=== PATIENT | male | born 1935 | race Caucasian/White ===

== ENCOUNTER → 2017-07-17 | Outpatient (CLI) | payer MEDICARE, BC ==
[2017-07-17 11:40] LABS: Anisocytosis Slight; Aty Lym Flag Moderate; HCT 38.8 % (39.0-53.0); HDW 3.11; HGB 11.9 gm/dL (13.0-17.5); Hypochromasia Marked; MCH 30.7 pg (25.0-35.0); MCHC 30.5 g/dL (31.0-37.0); MCV 100.4 fL (80.0-100.0); Macrocytosis Slight; Mean Platelet Volume 10.5; RBC 3.87 m/uL (4.30-5.90); RDW 16.3 % (11.5-15.5); WBC 4.7 k/uL (3.8-10.6); WBC (Perox) 4.76
[2017-07-17 11:53] LABS: ALT 32 U/L (21-72); AST 25 U/L (17-59); Alkaline Phosphatase 62 U/L (38-126); Anion Gap 9 mmol/L; Blood Urea Nitrogen 20 mg/dL (9-20); Calcium 8.7 mg/dL (8.4-10.2); Carbon Dioxide 26 mmol/L (22-30); Chloride 108 mmol/L (98-107); Cholesterol 126 mg/dL (<200); Glucose 102 mg/dL (74-99); HDL Cholesterol 38 mg/dL (40-60); Non-African American GFR(MDRD) >60 (>60 ml/min/1.73 sqM); Potassium 5.2 mmol/L (3.5-5.1); Sodium 143 mmol/L (137-145); Total Bilirubin 0.8 mg/dL (0.2-1.3); Total Protein 6.4 g/dL (6.3-8.2)
[2017-07-17 12:03] LABS: Add Differential Manual Differential
[2017-07-17 12:09] LABS: Band Neutrophils % 1 %; Manual Review Performed; Myelocytes % 1 %; Nucleated Red Blood Cells 0 /100 WBC (0-0); Total Cells Counted 200
== END | disposition home or self-care (01) ==
LOC: LABWHC1 11:03
PROVIDERS: ATTEND Internal Medicine
DX: E78.5 Hyperlipidemia, unspecified (principal); I10 Essential (primary) hypertension; I25.10 Atherosclerotic heart disease of native coronary artery without angina pectoris; Z85.46 Personal history of malignant neoplasm of prostate
CPT/HCPCS: 36415; 80053; 80061; 84153; 84439; 84443; 85025

== ENCOUNTER → 2018-03-05 | Outpatient (CLI) | payer MEDICARE, BC ==
--- NOTE | 2018-03-05 11:29 | FL ---
ESOPHOGRAM. HISTORY: Dysphagia Esophagram was performed per the air contrast technique. The patient swallowed barium and effervesce nt crystals without difficulty or delay. Esophageal peristalsis and motility appear to be within normal limits. There is no evidence for filling defect, mass or diverticulum. Small sliding-type hiatal hernia noted. Subsequently single contrast cervical esophagram was performed which fails demonstrate evidence for a spiration penetration or mass. IMPRESSION: Small sliding-type hiatal hernia noted.
== END | disposition home or self-care (01) ==
LOC: RADFLMAIN 09:12
PROVIDERS: ATTEND Otolaryngology
DX: K44.9 Diaphragmatic hernia without obstruction or gangrene (principal)
CPT/HCPCS: 74220

== ENCOUNTER → 2018-06-23 | Outpatient (CLI) | payer MEDICARE, BC ==
[2018-06-23 11:53] LABS: Albumin 4.1 g/dL (3.5-5.0); Calcium 8.8 mg/dL (8.4-10.2); Total Bilirubin 0.7 mg/dL (0.2-1.3); Total Protein 6.4 g/dL (6.3-8.2)
[2018-06-23 11:58] LABS: INR 1.2 (<1.2); Prothrombin Time 11.2 sec (9.0-12.0)
== END | disposition home or self-care (01) ==
LOC: LABWHC1 10:11
PROVIDERS: ATTEND Internal Medicine Interventional Cardiology
DX: E78.2 Mixed hyperlipidemia (principal); I48.1 Persistent atrial fibrillation
CPT/HCPCS: 36415; 80053; 80061; 85610

== ENCOUNTER 2018-12-27 16:18 | Inpatient (IN) | payer MEDICARE, BC ==
[2018-12-27] MEDS ORDERED: IPRATROPIUM-ALBUTEROL 3 ML NEB INHALATION STA (16:45)
--- NOTE | 2018-12-27 16:46 | ED ---
SOB HPI - General Chief Complaint: Shortness of Breath Stated Complaint: Sob Time Seen by Provider: 12/27/18 16:37 Source: patient, RN notes reviewed, old records reviewed Mode of arrival: ambulatory Limitations: no limitations - History of Present Illness Initial Comments: This is a 83-year-old male the ER for evaluation shortness of breath. Patient sent in from family doctor for further evaluation management. Patient was hypoxic in the office with shortness of breath. Patient continues to plan of shortness of breath no chest pain. No fevers no cough or congestion MD Complaint: shortness of breath, cough -: days(s) Radiation: other Severity: moderate Severity scale (1-10): 6 Quality: aching Consistency: constant Improves With: bronchodilators Worsens With: nothing Known History Of: congestive heart failure Context: recent URI Associated Symptoms: cough Treatments Prior to Arrival: none - Related Data Home Medications Medication Instructions Recorded Confirmed Albuterol Inhaler [Ventolin Hfa 2 puff INHALATION RT-Q6H 12/27/18 12/27/18 Inhaler] Apixaban [Eliquis] 2.5 mg PO BID 12/27/18 12/27/18 Furosemide [Lasix] 20 mg PO BID 12/27/18 12/27/18 Metoprolol Succinate (ER) [Toprol 50 mg PO DAILY 12/27/18 12/27/18 XL] Multivitamins, Thera [Multivitamin 1 tab PO DAILY 12/27/18 12/27/18 (formulary)] Omeprazole [PriLOSEC] 20 mg PO DAILY 12/27/18 12/27/18 Simvastatin [Zocor] 40 mg PO DAILY 12/27/18 12/27/18 Spironolactone [Aldactone] 25 mg PO DAILY 12/27/18 12/27/18 amLODIPine BESYLATE/BENAZEPRIL 1 cap PO DAILY 12/27/18 12/27/18 [amLODIPine BESYLATE/BENAZEPRIL 5-20 MG] Allergies Allergy/AdvReac Type Severity Reaction Status Date / Time No Known Allergies Allergy Verified 12/27/18 17:41 Review of Systems ROS Statement: Those systems with pertinent positive or pertinent negative responses have been documented in the HPI. ROS Other: All systems not noted in ROS Statement are negative. Past Medical History Past Medical History: Heart Failure, Hyperlipidemia, Hypertension Additional Past Medical History / Comment(s): prostate CA and radiation History of Any Multi-Drug Resistant Organisms: None Reported Past Surgical History: Coronary Bypass/CABG Past Psychological History: No Psychological Hx Reported Smoking Status: Former smoker Past Alcohol Use History: None Reported Past Drug Use History: None Reported - Past Family History Father Family Medical History: Unable to Obtain Mother Family Medical History: Unable to Obtain General Exam Limitations: no limitations General appearance: alert, anxious, in distress Head exam: Present: atraumatic, normocephalic, normal inspection Eye exam: Present: normal appearance, PERRL, EOMI. Absent: scleral icterus, conjunctival injection, periorbital swelling ENT exam: Present: normal exam, mucous membranes moist Neck exam: Present: normal inspection. Absent: tenderness, meningismus, lymphadenopathy Respiratory exam: Present: respiratory distress, wheezes, rales, decreased breath sounds, prolonged expiratory. Absent: rhonchi, stridor Cardiovascular Exam: Present: regular rate, normal rhythm, normal heart sounds. Absent: systolic murmur, diastolic murmur, rubs, gallop, clicks GI/Abdominal exam: Present: soft, normal bowel sounds. Absent: distended, tenderness, guarding, rebound, rigid Extremities exam: Present: normal inspection, full ROM, normal capillary refill. Absent: tenderness, pedal edema, joint swelling, calf tenderness Back exam: Present: normal inspection Neurological exam: Present: alert, oriented X3, CN II-XII intact Psychiatric exam: Present: normal affect, normal mood Skin exam: Present: warm, dry, intact, normal color. Absent: rash Course Vital Signs 12/27/18 12/27/18 12/27/18 16:20 16:54 17:08 Temperature 97.6 F Pulse Rate 100 86 92 Pulse Rate [ Engine Wiper ] Respiratory 20 Rate Blood Pressure 102/55 Blood Pressure [Right Arm] O2 Sat by Pulse 78 L Oximetry 12/27/18 12/27/18 12/27/18 17:32 18:00 18:44 Temperature Pulse Rate 86 81 86 Pulse Rate [ Engine Wiper ] Respiratory 20 20 20 Rate Blood Pressure 142/82 142/82 148/74 Blood Pressure [Right Arm] O2 Sat by Pulse 95 96 94 L Oximetry 12/27/18 12/27/18 12/27/18 18:45 19:00 19:15 Temperature Pulse Rate 84 84 79 Pulse Rate [ Engine Wiper ] Respiratory 13 19 19 Rate Blood Pressure 148/74 148/74 142/89 Blood Pressure [Right Arm] O2 Sat by Pulse 92 L 94 L 94 L Oximetry 12/27/18 12/27/18 12/27/18 19:30 19:45 20:00 Temperature Pulse Rate 83 84 80 Pulse Rate [ Engine Wiper ] Respiratory 19 21 21 Rate Blood Pressure 142/89 142/89 142/89 Blood Pressure [Right Arm] O2 Sat by Pulse 94 L 98 95 Oximetry 12/27/18 12/27/18 12/27/18 20:15 20:30 20:45 Temperature Pulse Rate 80 86 86 Pulse Rate [ Engine Wiper ] Respiratory 19 21 22 Rate Blood Pressure Blood Pressure [Right Arm] O2 Sat by Pulse 97 98 95 Oximetry 12/27/18 12/27/18 12/27/18 21:00 21:15 21:30 Temperature Pulse Rate 86 86 Pulse Rate [ Engine Wiper ] Respiratory 20 20 Rate Blood Pressure 153/85 153/85 Blood Pressure [Right Arm] O2 Sat by Pulse 95 95 Oximetry 12/27/18 12/27/18 12/27/18 21:43 21:45 22:00 Temperature Pulse Rate 82 86 87 Pulse Rate [ Engine Wiper ] Respiratory 16 14 20 Rate Blood Pressure 153/85 Blood Pressure [Right Arm] O2 Sat by Pulse 94 L 95 83 L Oximetry 12/27/18 12/27/18 12/27/18 22:15 22:34 22:45 Temperature Pulse Rate 84 Pulse Rate [ Engine Wiper ] Respiratory 16 Rate Blood Pressure Blood Pressure [Right Arm] O2 Sat by Pulse 91 L 84 L 84 L Oximetry 12/27/18 12/27/18 12/27/18 23:00 23:15 23:30 Temperature Pulse Rate Pulse Rate [ Engine Wiper ] Respiratory Rate Blood Pressure Blood Pressure [Right Arm] O2 Sat by Pulse 72 L 76 L 87 L Oximetry 12/27/18 12/28/18 12/28/18 23:45 01:43 01:52 Temperature Pulse Rate 82 82 91 Pulse Rate [ Engine Wiper ] Respiratory 18 Rate Blood Pressure 121/77 Blood Pressure [Right Arm] O2 Sat by Pulse Oximetry 12/28/18 12/28/18 12/28/18 04:00 07:33 07:45 Temperature Pulse Rate 91 115 H Pulse Rate [ 68 Engine Wiper ] Respiratory 18 Rate Blood Pressure Blood Pressure 136/81 [Right Arm] O2 Sat by Pulse 98 Oximetry 12/28/18 12/28/18 12/28/18 08:10 08:11 11:16 Temperature 97.7 F Pulse Rate 111 H Pulse Rate [ 99 99 Engine Wiper ] Respiratory 20 20 Rate Blood Pressure Blood Pressure 136/81 [Right Arm] O2 Sat by Pulse 95 Oximetry 12/28/18 12/28/18 12/28/18 11:29 12:00 12:09 Temperature 97.0 F L Pulse Rate 103 H Pulse Rate [ 90 90 Engine Wiper ] Respiratory 20 20 Rate Blood Pressure Blood Pressure 135/92 [Right Arm] O2 Sat by Pulse 93 L Oximetry 12/28/18 12/28/18 14:58 15:30 Temperature 97.2 F L Pulse Rate Pulse Rate [ 88 90 Engine Wiper ] Respiratory 20 20 Rate Blood Pressure Blood Pressure 119/92 [Right Arm] O2 Sat by Pulse 96 Oximetry Medical Decision Making - Medical Decision Making [address] Beyer's office to be admitted for CHF CHF and hypoxia secondary to COPD. We'll place on breathing treatments and cardiopulmonary resuscitation - Lab Data Result diagrams: 12/27/18 17:15 12/27/18 17:15 Lab Results 12/27/18 12/27/18 12/27/18 Range/Units 17:15 17:15 17:15 WBC 7.2 (3.8-10.6) k/uL RBC 3.15 L (4.30-5.90) m/uL Hgb 8.4 L (13.0-17.5) gm/dL Hct 28.1 L (39.0-53.0) % MCV 89.0 (80.0-100.0) fL MCH 26.6 (25.0-35.0) pg MCHC 29.9 L (31.0-37.0) g/dL RDW 18.8 H (11.5-15.5) % Plt Count 93 L (150-450) k/uL Neutrophils % (Manual) 38 % Lymphocytes % (Manual) 41 % Monocytes % (Manual) 21 % Neutrophils # (Manual) 2.74 (1.3-7.7) k/uL Lymphocytes # (Manual) 2.95 (1.0-4.8) k/uL Monocytes # (Manual) 1.51 H (0-1.0) k/uL Nucleated RBCs 0 (0-0) /100 WBC Manual Slide Review Performed Hypochromasia Marked Poikilocytosis Slight Poikilocytosis (manual Present Anisocytosis Slight Anisocytosis (manual) Present PT (9.0-12.0) sec INR (<1.2) APTT (22.0-30.0) sec D-Dimer (<0.60) mg/L FEU Sodium 139 (137-145) mmol/L Potassium 4.8 (3.5-5.1) mmol/L Chloride 104 (98-107) mmol/L Carbon Dioxide 26 (22-30) mmol/L Anion Gap 9 mmol/L BUN 35 H (9-20) mg/dL Creatinine 1.25 (0.66-1.25) mg/dL Est GFR (CKD-EPI)AfAm 62 (>60 ml/min/1.73 sqM) Est GFR (CKD-EPI)NonAf 53 (>60 ml/min/1.73 sqM) Glucose 84 (74-99) mg/dL Calcium 8.7 (8.4-10.2) mg/dL Magnesium 1.9 (1.6-2.3) mg/dL Total Bilirubin 2.0 H (0.2-1.3) mg/dL AST 40 (17-59) U/L ALT 30 (21-72) U/L Alkaline Phosphatase 51 (38-126) U/L Total Creatine Kinase 73 (55-170) U/L CK-MB (CK-2) 2.7 H (0.0-2.4) ng/mL CK-MB (CK-2) Rel Index 3.7 Troponin I 0.080 H* (0.000-0.034) ng/mL NT-Pro-B Natriuret Pep pg/mL Total Protein 6.1 L (6.3-8.2) g/dL Albumin 3.6 (3.5-5.0) g/dL 12/27/18 12/27/18 12/27/18 Range/Units 17:15 17:15 23:32 WBC (3.8-10.6) k/uL RBC (4.30-5.90) m/uL Hgb (13.0-17.5) gm/dL Hct (39.0-53.0) % MCV (80.0-100.0) fL MCH (25.0-35.0) pg MCHC (31.0-37.0) g/dL RDW (11.5-15.5) % Plt Count (150-450) k/uL Neutrophils % (Manual) % Lymphocytes % (Manual) % Monocytes % (Manual) % Neutrophils # (Manual) (1.3-7.7) k/uL Lymphocytes # (Manual) (1.0-4.8) k/uL Monocytes # (Manual) (0-1.0) k/uL Nucleated RBCs (0-0) /100 WBC Manual Slide Review Hypochromasia Poikilocytosis Poikilocytosis (manual Anisocytosis Anisocytosis (manual) PT 12.4 H (9.0-12.0) sec INR 1.2 H (<1.2) APTT 27.7 (22.0-30.0) sec D-Dimer 0.33 (<0.60) mg/L FEU Sodium (137-145) mmol/L Potassium (3.5-5.1) mmol/L Chloride (98-107) mmol/L Carbon Dioxide (22-30) mmol/L Anion Gap mmol/L BUN (9-20) mg/dL Creatinine (0.66-1.25) mg/dL Est GFR (CKD-EPI)AfAm (>60 ml/min/1.73 sqM) Est GFR (CKD-EPI)NonAf (>60 ml/min/1.73 sqM) Glucose (74-99) mg/dL Calcium (8.4-10.2) mg/dL Magnesium (1.6-2.3) mg/dL Total Bilirubin (0.2-1.3) mg/dL AST (17-59) U/L ALT (21-72) U/L Alkaline Phosphatase (38-126) U/L Total Creatine Kinase (55-170) U/L CK-MB (CK-2) (0.0-2.4) ng/mL CK-MB (CK-2) Rel Index Troponin I 0.092 H* (0.000-0.034) ng/mL NT-Pro-B Natriuret Pep 09938 pg/mL Total Protein (6.3-8.2) g/dL Albumin (3.5-5.0) g/dL 12/28/18 Range/Units 05:22 WBC (3.8-10.6) k/uL RBC (4.30-5.90) m/uL Hgb (13.0-17.5) gm/dL Hct (39.0-53.0) % MCV (80.0-100.0) fL MCH (25.0-35.0) pg MCHC (31.0-37.0) g/dL RDW (11.5-15.5) % Plt Count (150-450) k/uL Neutrophils % (Manual) % Lymphocytes % (Manual) % Monocytes % (Manual) % Neutrophils # (Manual) (1.3-7.7) k/uL Lymphocytes # (Manual) (1.0-4.8) k/uL Monocytes # (Manual) (0-1.0) k/uL Nucleated RBCs (0-0) /100 WBC Manual Slide Review Hypochromasia Poikilocytosis Poikilocytosis (manual Anisocytosis Anisocytosis (manual) PT (9.0-12.0) sec INR (<1.2) APTT (22.0-30.0) sec D-Dimer (<0.60) mg/L FEU Sodium (137-145) mmol/L Potassium (3.5-5.1) mmol/L Chloride (98-107) mmol/L Carbon Dioxide (22-30) mmol/L Anion Gap mmol/L BUN (9-20) mg/dL Creatinine (0.66-1.25) mg/dL Est GFR (CKD-EPI)AfAm (>60 ml/min/1.73 sqM) Est GFR (CKD-EPI)NonAf (>60 ml/min/1.73 sqM) Glucose (74-99) mg/dL Calcium (8.4-10.2) mg/dL Magnesium (1.6-2.3) mg/dL Total Bilirubin (0.2-1.3) mg/dL AST (17-59) U/L ALT (21-72) U/L Alkaline Phosphatase (38-126) U/L Total Creatine Kinase (55-170) U/L CK-MB (CK-2) (0.0-2.4) ng/mL CK-MB (CK-2) Rel Index Troponin I 0.090 H* (0.000-0.034) ng/mL NT-Pro-B Natriuret Pep pg/mL Total Protein (6.3-8.2) g/dL Albumin (3.5-5.0) g/dL - EKG Data -: EKG Interpreted by Me (EKG shows A. fib rate of 83, QRS 106, QTc 470) - Radiology Data Radiology results: report reviewed (Chest x-rays positive CHF ), image reviewed Critical Care Time Critical Care Time: Yes Total Critical Care Time: 31 Disposition Clinical Impression: Acute exacerbation of chronic obstructive airways disease, Congestive heart failure, Acute pulmonary edema, Hypoxia Disposition: ADMITTED IP TO THIS HOSP Condition: Fair Is patient prescribed a controlled substance at d/c from ED?: No
[2018-12-27 17:36] LABS: Albumin 3.6 g/dL (3.5-5.0); Calcium 8.7 mg/dL (8.4-10.2); Magnesium 1.9 mg/dL (1.6-2.3); Potassium 4.8 mmol/L (3.5-5.1); Total Protein 6.1 g/dL (6.3-8.2)
[2018-12-27 17:40] LABS: Anisocytosis Slight; HCT 28.1 % (39.0-53.0); HGB 8.4 gm/dL (13.0-17.5); Hypochromasia Marked; MCH 26.6 pg (25.0-35.0); MCHC 29.9 g/dL (31.0-37.0); Mean Platelet Volume 10.3; Poikilocytosis Slight; RBC 3.15 m/uL (4.30-5.90); RDW 18.8 % (11.5-15.5); WBC 7.2 k/uL (3.8-10.6)
[2018-12-27 17:58] LABS: Creatine Kinase MB 2.7 ng/mL (0.0-2.4)
[2018-12-27 18:01] LABS: D-Dimer 0.33 mg/L FEU (<0.60); INR 1.2 (<1.2); Partial Thromboplastin Time 27.7 sec (22.0-30.0); Prothrombin Time 12.4 sec (9.0-12.0)
[2018-12-27 18:10] LABS: Troponin I 0.08 ng/mL (0.000-0.034)
[2018-12-27 18:17] LABS: Lymphocytes # (M) 2.95 k/uL (1.0-4.8); Monocytes # (M) 1.51 k/uL (0-1.0); Neutrophils # (M) 2.74 k/uL (1.3-7.7); Neutrophils % (M) 38 %; Nucleated Red Blood Cells 0 /100 WBC (0-0); Platelet Count 93 k/uL (150-450); Total Cells Counted 100
[2018-12-27 18:18] LABS: Anisocytosis (M) Present; Poikilocytosis (M) Present
[2018-12-27] MEDS ORDERED: IPRATROPIUM-ALBUTEROL 3 ML NEB INHALATION PRN (19:16)
--- NOTE | 2018-12-27 19:21 | XR ---
EXAMINATION TYPE: XR chest 1V portable DATE OF EXAM: 12/27/2018 COMPARISON: Chest x-ray October 10, 2018 HISTORY: Shortness of breath TECHNIQUE: Single AP portable frontal upright view of the chest is obtained. FINDINGS: Overlying sternal wires and mediastinal clips are redemonstrated. There is chronic parenchy mal change without suspicious focal air space opacity, pleural effusion, or pneumothorax seen. The c ardiac silhouette size remains enlarged with new mild central vascular congestion. The osseous stru ctures remains somewhat demineralized. IMPRESSION: Cardiomegaly redemonstrated with suspected new mild central vascular congestion. Correla te for CHF exacerbation advised.
[2018-12-27] MEDS: FUROSEMIDE 10 MG/ML 4 ML VIAL IV SCH (20:58)
[2018-12-28] MEDS: ALBUTEROL NEBULIZED 2.5 MG/3 ML INHALATION SCH ×4 (01:42→19:40)
[2018-12-28] MEDS: FUROSEMIDE 10 MG/ML 4 ML VIAL IV SCH (02:24)
[2018-12-28] MEDS: METOPROLOL SUCCINATE (ER) 50 MG TAB.ER.24H PO SCH (08:15)
[2018-12-28] MEDS: ATORVASTATIN 20 MG TAB PO SCH (08:15)
[2018-12-28] MEDS: SPIRONOLACTONE 25 MG TAB PO SCH (08:15)
[2018-12-28] MEDS: amLODIPine 5 MG TAB PO SCH (08:15)
[2018-12-28] MEDS: APIXABAN 2.5 MG TABLET PO SCH ×2 (08:15→21:14)
[2018-12-28] MEDS: LISINOPRIL 20 MG TAB PO SCH (08:16)
[2018-12-28] MEDS: PANTOPRAZOLE 40 MG TABLET PO SCH (08:16)
[2018-12-28] MEDS ORDERED: ENOXAPARIN 40 MG/0.4 ML SYRINGE SQ SCH (09:00)
[2018-12-28] MEDS ORDERED: FUROSEMIDE 20 MG TAB PO SCH (09:00)
--- NOTE | 2018-12-28 13:51 | P.CNPUL ---
<AnnemarieAliyah quintero - Last Filed: 12/28/18 13:39> History of Present Illness Consult date: 12/28/18 Requesting physician: Stephanie Bone Reason for consult: dyspnea, COPD Chief complaint: Shortness of breath, cough, congestion History of present illness: This is a very pleasant 83-year-old gentleman who follows with Dr. Beyer is his primary care physician. He has a history of chronic hypoxic respiratory failure secondary to chronic obstructive pulmonary disease, chronic cor pulmonale, atrial fibrillation, chronic systolic congestive heart failure, chronic dyspnea on exertion, coronary artery disease with previous coronary artery bypass grafting, hypertension. He was in our office yesterday seen Dr. Beyer and he was found to have significant oxygen desaturations that went along with his complaints of increasing shortness of breath cough and congestion. He was directed to the emergency room from there. Asked x-ray revealed evidence of cardiomegaly with mild central vascular congestion. EKG reveals atrial fibrillation with a controlled ventricular response and some possible ischemic changes in the anterior lateral leads. Troponin 0.08, 0.09, 0.09, proBNP 11,800. D-dimer 0.33. White count 7.2. Hemoglobin 8.4. Platelet count 93,000. INR 1.2. He is seen today in consultation in the emergency room. He is currently awake and alert in mild respiratory distress. He's been afebrile. Slightly tachycardic. Maintain O2 saturations in the 90s on 3 L/m per nasal cannula. He has been initiated on IV diuretics, IV Solu- Medrol, bronchodilators. He is anticoagulated with Eliquis. Review of Systems Constitutional: Reports fatigue, Reports weakness Eyes: denies blurred vision, denies decreased vision Ears: bilateral: decreased hearing Ears, nose, mouth and throat: Denies headache, Denies sore throat Cardiovascular: Reports decreased exercise tolerance, Reports dyspnea on exertion, Reports irregular heart beat, Reports shortness of breath Respiratory: Reports cough with sputum, Reports dyspnea, Reports wheezing Gastrointestinal: Reports bloating Musculoskeletal: Reports limitation of motion Integumentary: Denies pruritus, Denies rash Neurological: Denies numbness, Denies weakness Psychiatric: Reports anxiety Endocrine: Denies fatigue, Denies weight change Hematologic/Lymphatic: Reports as per HPI Allergic/Immunologic: Reports as per HPI Past Medical History Past Medical History: Heart Failure, Hyperlipidemia, Hypertension Additional Past Medical History / Comment(s): prostate CA and radiation History of Any Multi-Drug Resistant Organisms: None Reported Past Surgical History: Coronary Bypass/CABG Past Psychological History: No Psychological Hx Reported Smoking Status: Former smoker Past Alcohol Use History: None Reported Past Drug Use History: None Reported - Past Family History Father Family Medical History: Unable to Obtain Mother Family Medical History: Unable to Obtain Medications and Allergies Home Medications Medication Instructions Recorded Confirmed Type Albuterol Inhaler [Ventolin Hfa 2 puff INHALATION RT-Q6H 12/27/18 12/27/18 History Inhaler] Apixaban [Eliquis] 2.5 mg PO BID 12/27/18 12/27/18 History Furosemide [Lasix] 20 mg PO BID 12/27/18 12/27/18 History Metoprolol Succinate (ER) [Toprol 50 mg PO DAILY 12/27/18 12/27/18 History XL] Multivitamins, Thera [Multivitamin 1 tab PO DAILY 12/27/18 12/27/18 History (formulary)] Omeprazole [PriLOSEC] 20 mg PO DAILY 12/27/18 12/27/18 History Simvastatin [Zocor] 40 mg PO DAILY 12/27/18 12/27/18 History Spironolactone [Aldactone] 25 mg PO DAILY 12/27/18 12/27/18 History amLODIPine BESYLATE/BENAZEPRIL 1 cap PO DAILY 12/27/18 12/27/18 History [amLODIPine BESYLATE/BENAZEPRIL 5-20 MG] Allergies Allergy/AdvReac Type Severity Reaction Status Date / Time No Known Allergies Allergy Verified 12/27/18 17:41 Physical Exam Vitals: Vital Signs Temp Pulse Pulse Resp BP BP Pulse Ox 12/28/18 12:09 90 20 12/28/18 12:00 97.0 F L 90 20 135/92 93 L 12/28/18 11:29 103 H 12/28/18 11:16 111 H 12/28/18 08:11 99 20 12/28/18 08:10 97.7 F 99 20 136/81 95 12/28/18 07:45 115 H 12/28/18 07:33 91 12/28/18 04:00 68 18 136/81 98 02/05/19 01:52 91 12/28/18 01:43 82 12/27/18 23:45 82 18 121/77 12/27/18 23:30 87 L 12/27/18 23:15 76 L 12/27/18 23:00 72 L 12/27/18 22:45 84 L 12/27/18 22:34 84 L 12/27/18 22:15 84 16 91 L 12/27/18 22:00 87 20 83 L 12/27/18 21:45 86 14 95 12/27/18 21:43 82 16 153/85 94 L 12/27/18 21:30 153/85 12/27/18 21:15 86 20 153/85 95 12/27/18 21:00 86 20 95 12/27/18 20:45 86 22 95 12/27/18 20:30 86 21 98 12/27/18 20:15 80 19 97 12/27/18 20:00 80 21 142/89 95 12/27/18 19:45 84 21 142/89 98 12/27/18 19:30 83 19 142/89 94 L 12/27/18 19:15 79 19 142/89 94 L 12/27/18 19:00 84 19 148/74 94 L 12/27/18 18:45 84 13 148/74 92 L 12/27/18 18:44 86 20 148/74 94 L 12/27/18 18:00 81 20 142/82 96 12/27/18 17:32 86 20 142/82 95 12/27/18 17:08 92 12/27/18 16:54 86 12/27/18 16:20 97.6 F 100 20 102/55 78 L Intake and Output 12/27/18 12/28/18 12/28/18 22:59 06:59 14:59 Output Total 1400 600 Balance -1400 -600 Output: Urine 1400 600 Other: Voiding Method Urinal Urinal # Voids 2 Weight 106.141 kg - Constitutional General appearance: disheveled, morbidly obese - EENT Eyes: EOMI, PERRLA ENT: hard of hearing Ears: bilateral: normal - Neck Neck: normal ROM Carotids: bilateral: upstroke normal Thyroid: bilateral: normal size - Respiratory Respiratory: bilateral: diminished, wheezing, prolonged expiration - Cardiovascular Rhythm: irregularly irregular Heart sounds: normal: S1, S2 - Gastrointestinal General gastrointestinal: normal bowel sounds - Integumentary Integumentary: normal turgor - Neurologic Neurologic: CNII-XII intact - Musculoskeletal Musculoskeletal: generalized weakness - Psychiatric Psychiatric: A&O x's 3, appropriate affect, intact judgment & insight Results - Laboratory Findings CBC and BMP: 12/27/18 17:15 12/27/18 17:15 PT/INR, D-dimer PT 12.4 sec (9.0-12.0) H 12/27/18 17:15 INR 1.2 (<1.2) H 12/27/18 17:15 D-Dimer 0.33 mg/L FEU (<0.60) 12/27/18 17:15 Abnormal lab findings: Abnormal Labs 12/27/18 12/27/18 12/27/18 17:15 17:15 17:15 RBC 3.15 L Hgb 8.4 L Hct 28.1 L MCHC 29.9 L RDW 18.8 H Plt Count 93 L Monocytes # (Manual) 1.51 H PT INR BUN 35 H Total Bilirubin 2.0 H CK-MB (CK-2) 2.7 H Troponin I 0.080 H* Total Protein 6.1 L 12/27/18 12/27/18 12/28/18 17:15 23:32 05:22 RBC Hgb Hct MCHC RDW Plt Count Monocytes # (Manual) PT 12.4 H INR 1.2 H BUN Total Bilirubin CK-MB (CK-2) Troponin I 0.092 H* 0.090 H* Total Protein - Diagnostic Findings Chest x-ray: image reviewed Assessment and Plan Assessment: Impression: #1 Acute hypoxemic respiratory failure secondary to an acute exacerbation of chronic suspected systolic congestive heart failure along with an acute exacerbation of chronic obstructive pulmonary disease. #2 Acute exacerbation of chronic obstructive pulmonary disease, FEV1 value 65% of predicted. #3 Coronary artery disease with previous coronary artery bypass grafting. #4 Paroxysmal atrial fibrillation, anticoagulated with Eliquis. #5 Morbid obesity. #6 6 hyperlipidemia. #7 Gastroesophageal reflux disease. #8 Hypertension. Plan: The patient was seen and evaluated by Dr. Altamirano. Chest x-ray and labs were reviewed. Continue to diurese the patient. Continue bronchodilators and IV Solu-Medrol. Add Pulmicort and Perforomist inhalations. Cardiology consulted as well. We'll continue to follow and make further recommendations based on his clinical status. I, the cosigning physician, performed a history & physical examination of the patient. Lungs sounds with bilateral end expiratory wheeze, diminished. Maintaining good O2 saturations in the 90s on 3 L/m per nasal cannula. I discussed the assessment and plan of care with my nurse practitioner, Aliyah Sharpe. I attest to the above consultation as dictated by her. Time with Patient: Greater than 30 <Fariba Altamirano - Last Filed: 12/28/18 20:10> Physical Exam Vitals: Vital Signs Temp Pulse Pulse Resp BP BP Pulse Ox 12/28/18 19:53 101 H 12/28/18 19:41 99 12/28/18 15:30 90 20 12/28/18 14:58 97.2 F L 88 20 119/92 96 12/28/18 12:09 90 20 12/28/18 12:00 97.0 F L 90 20 135/92 93 L 12/28/18 11:29 103 H 12/28/18 11:16 111 H 12/28/18 08:11 99 20 12/28/18 08:10 97.7 F 99 20 136/81 95 12/28/18 07:45 115 H 12/28/18 07:33 91 12/28/18 04:00 68 18 136/81 98 12/28/18 01:52 91 12/28/18 01:43 82 12/27/18 23:45 82 18 121/77 12/27/18 23:30 87 L 12/27/18 23:15 76 L 12/27/18 23:00 72 L 12/27/18 22:45 84 L 12/27/18 22:34 84 L 12/27/18 22:15 84 16 91 L 12/27/18 22:00 87 20 83 L 12/27/18 21:45 86 14 95 12/27/18 21:43 82 16 153/85 94 L 12/27/18 21:30 153/85 12/27/18 21:15 86 20 153/85 95 12/27/18 21:00 86 20 95 12/27/18 20:45 86 22 95 12/27/18 20:30 86 21 98 12/27/18 20:15 80 19 97 Intake and Output 12/28/18 12/28/18 12/28/18 06:59 14:59 22:59 Intake Total 120 1200 Output Total 1400 900 300 Balance -1400 -780 900 Intake: Oral 120 1200 Output: Urine 1400 900 300 Other: Voiding Method Urinal Urinal Urinal # Voids 1 1 Results - Laboratory Findings CBC and BMP: 12/27/18 17:15 12/27/18 17:15 PT/INR, D-dimer PT 12.4 sec (9.0-12.0) H 12/27/18 17:15 INR 1.2 (<1.2) H 12/27/18 17:15 D-Dimer 0.33 mg/L FEU (<0.60) 12/27/18 17:15 Abnormal lab findings: Abnormal Labs 12/27/18 12/27/18 12/27/18 17:15 17:15 17:15 RBC 3.15 L Hgb 8.4 L Hct 28.1 L MCHC 29.9 L RDW 18.8 H Plt Count 93 L Monocytes # (Manual) 1.51 H PT INR BUN 35 H Total Bilirubin 2.0 H CK-MB (CK-2) 2.7 H Troponin I 0.080 H* Total Protein 6.1 L 12/27/18 12/27/18 12/28/18 17:15 23:32 05:22 RBC Hgb Hct MCHC RDW Plt Count Monocytes # (Manual) PT 12.4 H INR 1.2 H BUN Total Bilirubin CK-MB (CK-2) Troponin I 0.092 H* 0.090 H* Total Protein
--- NOTE | 2018-12-28 14:27 | P.CRDCN ---
History of Present Illness Consult date: 12/28/18 Requesting physician: Stephanie Bone Consult reason: congestive heart failure Chief complaint: Shortness of breath History of present illness: This is a pleasant 83-year-old gentleman with known history of coronary artery disease and prior bypass surgery in 1996, patient also has history of COPD, chronic cor pulmonale, chronic persistent atrial fibrillation, hypertension, hyperlipidemia, he was directed to come to the emergency room after being seen in the office by Dr. Cid are his lung doctor. According to the patient for approximate one week duration he has noticed himself to be quite short of breath, positive PND and orthopnea. Initially he states that the symptoms started with what appeared to be an upper respiratory infection, he states that he was coughing a significant amount of sputum. Chest x-ray on admission here showed cardiomegaly with new central vascular congestion, suggesting congestive heart failure. EKG on presentation here showed atrial fibrillation with a controlled ventricular response. Blood pressure 135/90 with a heart rate in the 80s to 90s, 93% on 3 L of oxygen. White blood cell count 7.2, hemoglobin 8.4, platelet count 93. Sodium 139, potassium 4.8, BUN 35 and creatinine 1.2. BNP level on admission 11,800. Troponin 0.080, 0.092, 0.090. Patient was initiated on IV Lasix on presentation here, he is on anticoagulation in the form of Eliquis for his atrial fibrillation. Patient has diuresed 1999 since the initiation of IV Lasix. He continues to feel short of breath however he does state that there is significant improvement from presentation here. Past Medical History Past Medical History: Heart Failure, Hyperlipidemia, Hypertension Additional Past Medical History / Comment(s): prostate CA and radiation History of Any Multi-Drug Resistant Organisms: None Reported Past Surgical History: Coronary Bypass/CABG Past Psychological History: No Psychological Hx Reported Smoking Status: Former smoker Past Alcohol Use History: None Reported Past Drug Use History: None Reported - Past Family History Father Family Medical History: Unable to Obtain Mother Family Medical History: Unable to Obtain Medications and Allergies Home Medications Medication Instructions Recorded Confirmed Type Albuterol Inhaler [Ventolin Hfa 2 puff INHALATION RT-Q6H 12/27/18 12/27/18 History Inhaler] Apixaban [Eliquis] 2.5 mg PO BID 12/27/18 12/27/18 History Furosemide [Lasix] 20 mg PO BID 12/27/18 12/27/18 History Metoprolol Succinate (ER) [Toprol 50 mg PO DAILY 12/27/18 12/27/18 History XL] Multivitamins, Thera [Multivitamin 1 tab PO DAILY 12/27/18 12/27/18 History (formulary)] Omeprazole [PriLOSEC] 20 mg PO DAILY 12/27/18 12/27/18 History Simvastatin [Zocor] 40 mg PO DAILY 12/27/18 12/27/18 History Spironolactone [Aldactone] 25 mg PO DAILY 12/27/18 12/27/18 History amLODIPine BESYLATE/BENAZEPRIL 1 cap PO DAILY 12/27/18 12/27/18 History [amLODIPine BESYLATE/BENAZEPRIL 5-20 MG] Allergies Allergy/AdvReac Type Severity Reaction Status Date / Time No Known Allergies Allergy Verified 12/27/18 17:41 Physical Exam Vitals: Vital Signs Temp Pulse Pulse Resp BP BP Pulse Ox 12/28/18 12:09 90 20 12/28/18 12:00 97.0 F L 90 20 135/92 93 L 12/28/18 11:29 103 H 12/28/18 11:16 111 H 12/28/18 08:11 99 20 12/28/18 08:10 97.7 F 99 20 136/81 95 12/28/18 07:45 115 H 12/28/18 07:33 91 12/28/18 04:00 68 18 136/81 98 12/28/18 01:52 91 12/28/18 01:43 82 12/27/18 23:45 82 18 121/77 12/27/18 23:30 87 L 12/27/18 23:15 76 L 12/27/18 23:00 72 L 12/27/18 22:45 84 L 12/27/18 22:34 84 L 12/27/18 22:15 84 16 91 L 12/27/18 22:00 87 20 83 L 12/27/18 21:45 86 14 95 12/27/18 21:43 82 16 153/85 94 L 12/27/18 21:30 153/85 12/27/18 21:15 86 20 153/85 95 12/27/18 21:00 86 20 95 12/27/18 20:45 86 22 95 12/27/18 20:30 86 21 98 12/27/18 20:15 80 19 97 12/27/18 20:00 80 21 142/89 95 12/27/18 19:45 84 21 142/89 98 12/27/18 19:30 83 19 142/89 94 L 12/27/18 19:15 79 19 142/89 94 L 12/27/18 19:00 84 19 148/74 94 L 12/27/18 18:45 84 13 148/74 92 L 12/27/18 18:44 86 20 148/74 94 L 12/27/18 18:00 81 20 142/82 96 12/27/18 17:32 86 20 142/82 95 12/27/18 17:08 92 12/27/18 16:54 86 12/27/18 16:20 97.6 F 100 20 102/55 78 L Intake and Output 12/27/18 12/28/18 12/28/18 22:59 06:59 14:59 Output Total 1400 600 Balance -1400 -600 Output: Urine 1400 600 Other: Voiding Method Urinal Urinal # Voids 2 Weight 106.141 kg PHYSICAL EXAMINATION: GENERAL: 83-year-old gentleman in no acute distress at the time of my examination HEENT: Head is atraumatic, normocephalic. Pupils equal, round. Sclera anicteric. Conjunctiva are clear. Mucous membranes of the mouth are moist. Neck is supple. There is no elevated jugular venous pressure. No carotid bruit is heard. HEART EXAMINATION: Heart S1 and S2 irregularly irregular CHEST EXAMINATION: Lungs reveal scattered wheezing throughout with diminished air entry to bilateral bases. ABDOMEN: Soft, nontender. Bowel sounds are heard. No organomegaly noted. EXTREMITIES: 2+ peripheral pulses with 1+ evidence of peripheral edema and no calf tenderness noted. NEUROLOGIC patient is awake, alert and oriented 3 . . Results 12/27/18 17:15 12/27/18 17:15 Cardiac Enzymes 12/27/18 12/27/18 12/27/18 Range/Units 17:15 17:15 23:32 AST 40 (17-59) U/L CK-MB (CK-2) 2.7 H (0.0-2.4) ng/mL Troponin I 0.080 H* 0.092 H* (0.000-0.034) ng/mL 12/28/18 Range/Units 05:22 AST (17-59) U/L CK-MB (CK-2) (0.0-2.4) ng/mL Troponin I 0.090 H* (0.000-0.034) ng/mL Coagulation 12/27/18 Range/Units 17:15 PT 12.4 H (9.0-12.0) sec APTT 27.7 (22.0-30.0) sec CBC 12/27/18 Range/Units 17:15 WBC 7.2 (3.8-10.6) k/uL RBC 3.15 L (4.30-5.90) m/uL Hgb 8.4 L (13.0-17.5) gm/dL Hct 28.1 L (39.0-53.0) % Plt Count 93 L (150-450) k/uL Comprehensive Metabolic Panel 12/27/18 Range/Units 17:15 Sodium 139 (137-145) mmol/L Potassium 4.8 (3.5-5.1) mmol/L Chloride 104 (98-107) mmol/L Carbon Dioxide 26 (22-30) mmol/L BUN 35 H (9-20) mg/dL Creatinine 1.25 (0.66-1.25) mg/dL Glucose 84 (74-99) mg/dL Calcium 8.7 (8.4-10.2) mg/dL AST 40 (17-59) U/L ALT 30 (21-72) U/L Alkaline Phosphatase 51 (38-126) U/L Total Protein 6.1 L (6.3-8.2) g/dL Albumin 3.6 (3.5-5.0) g/dL Current Medications Generic Name Dose Route Start Last Admin Trade Name Freq PRN Reason Stop Dose Admin Albuterol Sulfate 2.5 mg 12/28/18 02:00 12/28/18 11:16 Ventolin Nebulized INHALATION 2.5 mg RT-Q6H JENAE Administration Albuterol/Ipratropium 3 ml 12/27/18 19:16 Duoneb 0.5 Mg-3 Mg/3 Ml Soln INHALATION RT-TID PRN Shortness Of Breath Or Wheezing Amlodipine Besylate 5 mg 12/28/18 09:00 12/28/18 08:15 Norvasc PO 5 mg DAILY JENAE Administration Apixaban 2.5 mg 12/28/18 09:00 12/28/18 08:15 Eliquis PO 2.5 mg BID JENAE Administration Atorvastatin Calcium 20 mg 12/28/18 09:00 12/28/18 08:15 Lipitor PO 20 mg DAILY JENAE Administration Enoxaparin Sodium 40 mg 12/28/18 09:00 12/28/18 10:25 Lovenox SQ Not Given DAILY [facility] Furosemide 20 mg 12/28/18 21:00 Lasix IV Q12HR [facility] Lisinopril 20 mg 12/28/18 09:00 12/28/18 08:16 Zestril PO 20 mg DAILY [facility] Administration Methylprednisolone Sodium Succinate 40 mg 12/28/18 16:00 Solu-Medrol IV Q8HR [facility] Metoprolol Succinate 50 mg 12/28/18 09:00 12/28/18 08:15 Toprol Xl PO 50 mg DAILY [facility] Administration Pantoprazole Sodium 40 mg 12/28/18 09:00 12/28/18 08:16 Protonix PO 40 mg DAILY [facility] Administration Spironolactone 25 mg 12/28/18 09:00 12/28/18 08:15 Aldactone PO 25 mg DAILY [facility] Administration Intake and Output 12/27/18 12/28/18 12/28/18 22:59 06:59 14:59 Output Total 1400 600 Balance -1400 -600 Output: Urine 1400 600 Other: Voiding Method Urinal Urinal # Voids 2 Weight 106.141 kg 12/27/18 17:15 12/27/18 17:15 EKG Interpretations (text) EKG on admission here shows atrial fibrillation with a controlled ventricular response. Assessment and Plan Plan: Assessment and plan #1 congestive cardiac failure, LV function unknown #2 chronic persistent atrial fibrillation on Eliquis for anticoagulation #3 known history of coronary artery disease with prior bypass surgery in 1996 #4 hypertension #5 hyperlipidemia #6 COPD, with exacerbation #7 obesity #8 abnormality in troponin, not consistent with acute coronary syndrome with no significant rise and fall pattern, likely resenting a type II [place]. Plan We will obtain an echocardiogram with Doppler study. Continue current dose of IV Lasix. Continue metoprolol, Aldactone, lisinopril, and Norvasc. Further recommendations to follow. DNP note has been reviewed, I agree with a documented findings and plan of care. Patient was seen and examined.
[2018-12-28] MEDS: methylPREDNISolone SOD SUCCI 40 MG/ML 1 ML VIAL IV SCH (15:46)
[2018-12-28] MEDS: FUROSEMIDE 10 MG/ML 2 ML VIAL IV SCH (21:14)
--- NOTE | 2018-12-28 21:27 | P.HPIM ---
History of Present Illness H&P Date: 12/28/18 Chief Complaint: Shortness of breath Patient is a 83-year-old male with a known history of hypertension, hyperlipidemia, chronic atrial fibrillation on anticoagulation, chronic CHF with systolic dysfunction coronary artery disease with history of CABG and chronic hypoxic respiratory failure secondary to COPD was sent to Hospital from PCPs office due to hypoxia and shortness of breath. Patient has been having shortness of breath and cough and congestion which is getting worse for the past few days. Patient otherwise denied any complaints of fever or chills. Cough with whitish sputum production. No nausea vomiting or diarrhea. No complaints of chest pain. Patient does have slightly increased leg swelling. Chest x-ray showed cardiomegaly redemonstrated with suspected new mild central vascular congestion. Correlate for CHF exacerbation advised. EKG showed atrial fibrillation. Patient is currently saturating in 90s with nausea cannula 2 L oxygen. Review of Systems Constitutional: Patient denies any fever or chills . No generalized weakness or weight loss. Abdomen: Patient denied nausea vomiting and diarrhea and abdominal pain. Cardiovascular: Patient denies any chest pain or short of breath no palpitations. Patient does have leg swelling Respiratory: Does have cough with sputum production. And shortness of breath.. Neurologic: Patient denied any numbness or tingling headache. Musculoskeletal: Patient denies any complaints of joint swelling or deformity. Skin: Negative Psychiatric: Negative Endocrine: No heat or cold intolerance. No recent weight gain. Genitourinary: No dysuria or hematuria. All other 14 point ROS negative except the above Past Medical History Past Medical History: Heart Failure, Hyperlipidemia, Hypertension Additional Past Medical History / Comment(s): prostate CA and radiation History of Any Multi-Drug Resistant Organisms: None Reported Past Surgical History: Coronary Bypass/CABG Past Psychological History: No Psychological Hx Reported Smoking Status: Former smoker Past Alcohol Use History: None Reported Past Drug Use History: None Reported - Past Family History Father Family Medical History: Unable to Obtain Mother Family Medical History: Unable to Obtain Medications and Allergies Home Medications Medication Instructions Recorded Confirmed Type Albuterol Inhaler [Ventolin Hfa 2 puff INHALATION RT-Q6H 12/27/18 12/27/18 History Inhaler] Apixaban [Eliquis] 2.5 mg PO BID 12/27/18 12/27/18 History Furosemide [Lasix] 20 mg PO BID 12/27/18 12/27/18 History Metoprolol Succinate (ER) [Toprol 50 mg PO DAILY 12/27/18 12/27/18 History XL] Multivitamins, Thera [Multivitamin 1 tab PO DAILY 12/27/18 12/27/18 History (formulary)] Omeprazole [PriLOSEC] 20 mg PO DAILY 12/27/18 12/27/18 History Simvastatin [Zocor] 40 mg PO DAILY 12/27/18 12/27/18 History Spironolactone [Aldactone] 25 mg PO DAILY 12/27/18 12/27/18 History amLODIPine BESYLATE/BENAZEPRIL 1 cap PO DAILY 12/27/18 12/27/18 History [amLODIPine BESYLATE/BENAZEPRIL 5-20 MG] Allergies Allergy/AdvReac Type Severity Reaction Status Date / Time No Known Allergies Allergy Verified 12/27/18 17:41 Physical Exam Vitals: Vital Signs Temp Pulse Pulse Resp BP BP Pulse Ox 12/28/18 12:09 90 20 12/28/18 12:00 97.0 F L 90 20 135/92 93 L 12/28/18 11:29 103 H 12/28/18 11:16 111 H 12/28/18 08:11 99 20 12/28/18 08:10 97.7 F 99 20 136/81 95 12/28/18 07:45 115 H 12/28/18 07:33 91 12/28/18 04:00 68 18 136/81 98 12/28/18 01:52 91 12/28/18 01:43 82 12/27/18 23:45 82 18 121/77 12/27/18 23:30 87 L 12/27/18 23:15 76 L 12/27/18 23:00 72 L 12/27/18 22:45 84 L 12/27/18 22:34 84 L 12/27/18 22:15 84 16 91 L 12/27/18 22:00 87 20 83 L 12/27/18 21:45 86 14 95 12/27/18 21:43 82 16 153/85 94 L 12/27/18 21:30 153/85 12/27/18 21:15 86 20 153/85 95 12/27/18 21:00 86 20 95 12/27/18 20:45 86 22 95 12/27/18 20:30 86 21 98 12/27/18 20:15 80 19 97 12/27/18 20:00 80 21 142/89 95 12/27/18 19:45 84 21 142/89 98 12/27/18 19:30 83 19 142/89 94 L 12/27/18 19:15 79 19 142/89 94 L 12/27/18 19:00 84 19 148/74 94 L 12/27/18 18:45 84 13 148/74 92 L 12/27/18 18:44 86 20 148/74 94 L 12/27/18 18:00 81 20 142/82 96 12/27/18 17:32 86 20 142/82 95 12/27/18 17:08 92 12/27/18 16:54 86 12/27/18 16:20 97.6 F 100 20 102/55 78 L Intake and Output 12/27/18 12/28/18 12/28/18 22:59 06:59 14:59 Output Total 1400 600 Balance -1400 -600 Output: Urine 1400 600 Other: Voiding Method Urinal Urinal # Voids 2 Weight 106.141 kg PHYSICAL EXAMINATION: Patient is lying in the bed comfortably, no acute distress, awake alert and oriented.. HEENT: Normocephalic. Neck is supple. Pupils reactive. Nostrils clear. Oral cavity is moist. Ears reveal no drainage. Neck reveals no JVD, carotid bruits, or thyromegaly. CHEST EXAMINATION: Trachea is central. Symmetrical expansion. Bilateral rhonchi positive. Prolonged expiration.. CARDIAC: Normal S1, S2 with no gallops. No murmurs ABDOMEN: Soft. Bowel sounds normal. No organomegaly. No abdominal bruits. Extremities: 2+ pitting edema. No clubbing or cyanosis Neurologically awake, alert, oriented x3 with well-coordinated movements. No focal deficits noted Skin: No rash or skin lesions. Psychiatric: Coperative. Nonsuicidal Musculoskeletal: No joint swelling or deformity. Normal range of motion. Results CBC & Chem 7: 12/27/18 17:15 12/27/18 17:15 Labs: Abnormal Lab Results - Last 24 Hours (Table) 12/27/18 12/27/18 12/27/18 Range/Units 17:15 17:15 17:15 RBC 3.15 L (4.30-5.90) m/uL Hgb 8.4 L (13.0-17.5) gm/dL Hct 28.1 L (39.0-53.0) % MCHC 29.9 L (31.0-37.0) g/dL RDW 18.8 H (11.5-15.5) % Plt Count 93 L (150-450) k/uL Monocytes # (Manual) 1.51 H (0-1.0) k/uL PT (9.0-12.0) sec INR (<1.2) BUN 35 H (9-20) mg/dL Total Bilirubin 2.0 H (0.2-1.3) mg/dL CK-MB (CK-2) 2.7 H (0.0-2.4) ng/mL Troponin I 0.080 H* (0.000-0.034) ng/mL Total Protein 6.1 L (6.3-8.2) g/dL 12/27/18 12/27/18 12/28/18 Range/Units 17:15 23:32 05:22 RBC (4.30-5.90) m/uL Hgb (13.0-17.5) gm/dL Hct (39.0-53.0) % MCHC (31.0-37.0) g/dL RDW (11.5-15.5) % Plt Count (150-450) k/uL Monocytes # (Manual) (0-1.0) k/uL PT 12.4 H (9.0-12.0) sec INR 1.2 H (<1.2) BUN (9-20) mg/dL Total Bilirubin (0.2-1.3) mg/dL CK-MB (CK-2) (0.0-2.4) ng/mL Troponin I 0.092 H* 0.090 H* (0.000-0.034) ng/mL Total Protein (6.3-8.2) g/dL Thrombosis Risk Factor Assmnt - DVT/VTE Prophylaxis DVT/VTE Prophylaxis: Pharmacologic Prophylaxis ordered - Choose All That Apply Each Risk Factor Represents 3 Points: Age 75 years or older Thrombosis Risk Factor Assessment Total Risk Factor Score: 3 Thrombosis Risk Factor Assessment Level: Moderate Risk Assessment and Plan Assessment: Shortness of breath secondary to acute on chronic CHF with systolic dysfunction Acute COPD exacerbation Elevated troponin/troponin leak likely type II [place]. Trending down Acute on Chronic hypoxic respiratory failure secondary to CHF exacerbation and COPD Chronic atrial fibrillation on anticoagulation at home Coronary disease with history of CABG Hypertension Hyperlipidemia Obesity with BMI 33.6 GERD Plan: Patient will be continued on IV diuresis with Lasix 20 mg twice a day. Continue with IV steroids within treatments and home medications including anticoagulation with Apixaban. Follow up closely and oxygen therapy. Further recommendations based on the clinical course. Prognosis is guarded with multiple medical problems and comorbid conditions. Time with Patient: Greater than 30
[2018-12-29] MEDS: methylPREDNISolone SOD SUCCI 40 MG/ML 1 ML VIAL IV SCH ×4 (00:22→23:32)
[2018-12-29] MEDS: ALBUTEROL NEBULIZED 2.5 MG/3 ML INHALATION SCH ×5 (01:31→19:43)
[2018-12-29 06:32] LABS: Anisocytosis Slight; Basophils % (A) 0 %; Eosinophils % (A) 0 %; HCT 29.2 % (39.0-53.0); HGB 8.5 gm/dL (13.0-17.5); Hypochromasia Marked; Lymphocytes # (A) 0.6 k/uL (1.0-4.8); Lymphocytes % (A) 11 %; MCH 26.2 pg (25.0-35.0); MCHC 29.1 g/dL (31.0-37.0); MCV 90.1 fL (80.0-100.0); Mean Platelet Volume 10.5; Monocytes # (A) 0.3 k/uL (0-1.0); Monocytes % (A) 6 %; Neutrophils # (A) 4.1 k/uL (1.3-7.7); Neutrophils % (A) 80 %; Poikilocytosis Slight; RBC 3.24 m/uL (4.30-5.90); RDW 18.6 % (11.5-15.5); WBC 5.1 k/uL (3.8-10.6)
[2018-12-29 06:43] LABS: Calcium 9.1 mg/dL (8.4-10.2); Potassium 4.7 mmol/L (3.5-5.1)
[2018-12-29 06:56] LABS: Platelet Count 95 k/uL (150-450)
[2018-12-29] MEDS: LISINOPRIL 20 MG TAB PO SCH (08:40)
[2018-12-29] MEDS: ATORVASTATIN 20 MG TAB PO SCH (08:40)
[2018-12-29] MEDS: APIXABAN 2.5 MG TABLET PO SCH ×2 (08:41→20:14)
[2018-12-29] MEDS: amLODIPine 5 MG TAB PO SCH (08:41)
[2018-12-29] MEDS: METOPROLOL SUCCINATE (ER) 50 MG TAB.ER.24H PO SCH (08:41)
[2018-12-29] MEDS: PANTOPRAZOLE 40 MG TABLET PO SCH (08:41)
[2018-12-29] MEDS: FUROSEMIDE 10 MG/ML 2 ML VIAL IV SCH ×2 (08:41→20:14)
[2018-12-29] MEDS: SPIRONOLACTONE 25 MG TAB PO SCH (08:41)
--- NOTE | 2018-12-29 10:44 | ECHOF ---
Referral Reason:chf MEASUREMENTS -------- HEIGHT: 177.8 cm WEIGHT: 106.1 kg BP: 135/92 RVIDd: 4.2 cm (< 3.3) IVSd: 1.3 cm (0.6 - 1.1) LVIDd: 5.0 cm (3.9 - 5.3) LVPWd: 1.4 cm (0.6 - 1.1) IVSs: 1.8 cm LVIDs: 3.2 cm LVPWs: 1.8 cm LAESV Index (A-L): 39.47 ml/m Ao Diam: 3.3 cm (2.0 - 3.7) AV Cusp: 2.0 cm (1.5 - 2.6) LA Diam: 3.8 cm (2.7 - 3.8) MV EXCURSION: 24.989 mm (> 18.000) MV EF SLOPE: 85 mm/s (70 - 150) EPSS: 0.3 cm RAP: 5.00 mmHg RVSP: 74.28 mmHg FINDINGS -------- Atrial fibrillation. This was a technically difficult study with suboptimal views. The left ventricular size is normal. There is mild concentric left ventricular hypertrophy. Overa ll left ventricular systolic function is normal with, an EF between 55 - 60 %. The right ventricle is severely enlarged. LA is moderately dilated 34-39 ml/m2 The right atrium is markedly enlarged. 3 ml of Lumason used There is mild to moderate aortic valve sclerosis. Trace to mild aortic regurgitation. There is no evidence of aortic stenosis. The mitral valve leaflets are mildly thickened. [id number] mitral regurgitation is present. Moderate to severe tricuspid regurgitation present. There is severe pulmonary hypertension. The r ight ventricular systolic pressure, as measured by Doppler, is 74.28mmHg. Trace/mild (physiologic) pulmonic regurgitation. The aortic root size is normal. IVC Not well visulized. There is no pericardial effusion. CONCLUSIONS -------- 1. Atrial fibrillation. 2. This was a technically difficult study with suboptimal views. 3. The left ventricular size is normal. 4. There is mild concentric left ventricular hypertrophy. 5. Overall left ventricular systolic function is normal with, an EF between 55 - 60 %. 6. The right ventricle is severely enlarged. 7. LA is moderately dilated 34-39 ml/m2 8. The right atrium is markedly enlarged. 9. 3 ml of Lumason used 10. There is mild to moderate aortic valve sclerosis. 11. Trace to mild aortic regurgitation. 12. The mitral valve leaflets are mildly thickened. 13. [id number] mitral regurgitation is present. 14. Moderate to severe tricuspid regurgitation present. 15. There is severe pulmonary hypertension. 16. The right ventricular systolic pressure, as measured by Doppler, is 74.28mmHg. 17. Trace/mild (physiologic) pulmonic regurgitation. 18. The aortic root size is normal. 19. IVC Not well visulized. 20. There is no pericardial effusion. CELERY WRAPPER: Quintin Jackson RDCS
--- NOTE | 2018-12-29 14:08 | P.PN ---
Subjective Progress Note Date: 12/29/18 This is a pleasant 83-year-old gentleman with known history of coronary artery disease and prior bypass surgery in 1996, patient also has history of COPD, chronic cor pulmonale, chronic persistent atrial fibrillation, hypertension, hyperlipidemia, he was directed to come to the emergency room after being seen in the office by Dr. Cid are his lung doctor. According to the patient for approximate one week duration he has noticed himself to be quite short of breath, positive PND and orthopnea. Initially he states that the symptoms started with what appeared to be an upper respiratory infection, he states that he was coughing a significant amount of sputum. Chest x-ray on admission here showed cardiomegaly with new central vascular congestion, suggesting congestive heart failure. EKG on presentation here showed atrial fibrillation with a controlled ventricular response. Blood pressure 135/90 with a heart rate in the 80s to 90s, 93% on 3 L of oxygen. White blood cell count 7.2, hemoglobin 8.4, platelet count 93. Sodium 139, potassium 4.8, BUN 35 and creatinine 1.2. BNP level on admission 11,800. Troponin 0.080, 0.092, 0.090. Patient was initiated on IV Lasix on presentation here, he is on anticoagulation in the form of Eliquis for his atrial fibrillation. Patient has diuresed 1999 since the initiation of IV Lasix. He continues to feel short of breath however he does state that there is significant improvement from presentation here. 12/29/2018 Patient seen and examined this morning, blood pressure 136/60, 93% on room air. Weight is down a kilograms today. White blood cell count I.5, hemoglobin 8.5 , platelet count 95. We will continue with IV Lasix for another 24 hours. Echocardiogram with Doppler study was performed which revealed an ejection fraction of 55-60%. Objective - Vital Signs Vital signs: Vital Signs Temp 97.9 F 12/29/18 08:00 Pulse 100 12/29/18 13:14 Resp 20 12/29/18 12:00 BP 137/61 12/29/18 12:00 Pulse Ox 93 L 12/29/18 12:00 Intake & Output 12/28/18 12/29/18 12/29/18 18:59 06:59 18:59 Intake Total 1320 350 Output Total 1200 Balance 120 350 Intake: Oral 1320 350 Output: Urine 1200 Other: Voiding Method Urinal Urinal # Voids 1 1 - Exam PHYSICAL EXAMINATION: GENERAL: 83-year-old gentleman in no acute distress at the time of my examination HEENT: Head is atraumatic, normocephalic. Pupils equal, round. Sclera anicteric. Conjunctiva are clear. Mucous membranes of the mouth are moist. Neck is supple. There is no elevated jugular venous pressure. No carotid bruit is heard. HEART EXAMINATION: Heart S1 and S2 irregularly irregular CHEST EXAMINATION: Lungs reveal scattered wheezing throughout with diminished air entry to bilateral bases. ABDOMEN: Soft, nontender. Bowel sounds are heard. No organomegaly noted. EXTREMITIES: 2+ peripheral pulses with 1+ evidence of peripheral edema and no calf tenderness noted. NEUROLOGIC patient is awake, alert and oriented 3 - Labs CBC & Chem 7: 12/29/18 06:11 12/29/18 06:11 Labs: Abnormal Lab Results - Last 24 Hours (Table) 12/29/18 12/29/18 Range/Units 06:11 06:11 RBC 3.24 L (4.30-5.90) m/uL Hgb 8.5 L (13.0-17.5) gm/dL Hct 29.2 L (39.0-53.0) % MCHC 29.1 L (31.0-37.0) g/dL RDW 18.6 H (11.5-15.5) % Plt Count 95 L (150-450) k/uL Lymphocytes # 0.6 L (1.0-4.8) k/uL BUN 29 H (9-20) mg/dL Glucose 144 H (74-99) mg/dL Assessment and Plan Plan: Assessment and plan #1 congestive cardiac failure, LV function unknown #2 chronic persistent atrial fibrillation on Eliquis for anticoagulation #3 known history of coronary artery disease with prior bypass surgery in 1996 #4 hypertension #5 hyperlipidemia #6 COPD, with exacerbation #7 obesity #8 abnormality in troponin, not consistent with acute coronary syndrome with no significant rise and fall pattern, likely resenting a type II [place]. Plan Echocardiogram with Doppler study revealed an ejection fraction of 55-60%. We will continue with current dose of IV Lasix. Continue to monitor intake and output along with daily weights and daily lytes BUN and creatinine. DNP note has been reviewed, I agree with a documented findings and plan of care. Patient was seen and examined.
[2018-12-29 14:27] VITALS: BMI 33.5
--- NOTE | 2018-12-29 19:02 | P.PN ---
Subjective Progress Note Date: 12/29/18 Principal diagnosis: Acute hypoxemic respiratory failure secondary to an acute exacerbation of chronic systolic congestive heart failure, exacerbation of COPD This is a very pleasant 83-year-old gentleman who follows with Dr. Beyer is his primary care physician. He has a history of chronic hypoxic respiratory failure secondary to chronic obstructive pulmonary disease, chronic cor pulmonale, atrial fibrillation, chronic systolic congestive heart failure, chronic dyspnea on exertion, coronary artery disease with previous coronary artery bypass grafting, hypertension. He was in our office yesterday seen Dr. Beyer and he was found to have significant oxygen desaturations that went along with his complaints of increasing shortness of breath cough and congestion. He was directed to the emergency room from there. Asked x-ray revealed evidence of cardiomegaly with mild central vascular congestion. EKG reveals atrial fibrillation with a controlled ventricular response and some possible ischemic changes in the anterior lateral leads. Troponin 0.08, 0.09, 0.09, proBNP 11,800. D-dimer 0.33. White count 7.2. Hemoglobin 8.4. Platelet count 93,000. INR 1.2. He is seen today in consultation in the emergency room. He is currently awake and alert in mild respiratory distress. He's been afebrile. Slightly tachycardic. Maintain O2 saturations in the 90s on 3 L/m per nasal cannula. He has been initiated on IV diuretics, IV Solu- Medrol, bronchodilators. He is anticoagulated with Eliquis. Patient was seen today 12/29/2017 in follow-up on the selective care unit. He is awake and alert in no acute distress. He is improved today as compared to yesterday. He remains in atrial fibrillation. His rate is better controlled. He has continued lower extremity edema. He continues to diurese. White count 5.1. Hemoglobin 8.5. Creatinine 1.15. He remains on IV diuretics. IV Solu- Medrol. Anticoagulated with Eliquis. Objective - Vital Signs Vital signs: Vital Signs Temp 97.8 F 12/29/18 15:45 Pulse 87 12/29/18 15:45 Resp 20 12/29/18 15:45 BP 125/65 12/29/18 15:45 Pulse Ox 95 12/29/18 15:45 Intake & Output 12/28/18 12/29/18 12/29/18 18:59 06:59 18:59 Intake Total 1320 350 Output Total 1200 Balance 120 350 Weight 106.141 kg Intake: Oral 1320 350 Output: Urine 1200 Other: Voiding Method Urinal Urinal # Voids 1 1 3 - Exam GENERAL EXAM: Alert, comfortable in no apparent distress. O2 saturation in the 90s on room air. HEAD: Normocephalic. EYES: Normal reaction of pupils, equal size. NOSE: Clear with pink turbinates. THROAT: No erythema or exudates. NECK: No masses, no JVD. CHEST: No chest wall deformity. LUNGS: Equal air entry with scattered rhonchi, crackles in the posterior bases. CVS: S1 and S2 normal with no audible murmur, irregular rhythm. ABDOMEN: No hepatosplenomegaly, normal bowel sounds, no guarding or rigidity. SPINE: No scoliosis or deformity SKIN: No rashes CENTRAL NERVOUS SYSTEM: No focal deficits, tone is normal in all 4 extremities. EXTREMITIES: There is 2+ peripheral edema. No clubbing, no cyanosis. Peripheral pulses are intact. - Labs CBC & Chem 7: 12/29/18 06:11 12/29/18 06:11 Labs: Abnormal Lab Results - Last 24 Hours (Table) 12/29/18 12/29/18 Range/Units 06:11 06:11 RBC 3.24 L (4.30-5.90) m/uL Hgb 8.5 L (13.0-17.5) gm/dL Hct 29.2 L (39.0-53.0) % MCHC 29.1 L (31.0-37.0) g/dL RDW 18.6 H (11.5-15.5) % Plt Count 95 L (150-450) k/uL Lymphocytes # 0.6 L (1.0-4.8) k/uL BUN 29 H (9-20) mg/dL Glucose 144 H (74-99) mg/dL Assessment and Plan Assessment: Impression: #1 Acute hypoxemic respiratory failure secondary to an acute exacerbation of chronic diastolic congestive heart failure along with an acute exacerbation of chronic obstructive pulmonary disease. Echocardiogram reveals preserved left ventricular systolic function. There is moderate to severe pulmonary hypertension. #2 Acute exacerbation of chronic obstructive pulmonary disease, FEV1 value 65% of predicted. #3 Coronary artery disease with previous coronary artery bypass grafting. #4 Paroxysmal atrial fibrillation, anticoagulated with Eliquis. #5 Morbid obesity. #6 Hyperlipidemia. #7 Gastroesophageal reflux disease. #8 Hypertension. Plan: The patient was seen and evaluated by Dr. Altamirano. He is improved today compared to yesterday. Continue to diurese the patient. Continue bronchodilators and IV Solu-Medrol. Continue Pulmicort and Perforomist inhalations. We'll continue to follow and make further recommendations based on his clinical status. I, the cosigning physician, performed a history & physical examination of the patient. Lungs sounds with bilateral end expiratory wheeze, diminished. Maintaining good O2 saturations in the 90s on 2 L/m per nasal cannula. I discussed the assessment and plan of care with my nurse practitioner, Aliyah Sharpe. I attest to the above note as dictated by her.
[2018-12-29] MEDS ORDERED: ALBUTEROL NEBULIZED 2.5 MG/3 ML INHALATION PRN (19:29)
--- NOTE | 2018-12-29 22:36 | P.PN ---
Subjective Progress Note Date: 12/29/18 Principal diagnosis: Acute CHF with preserved ejection fraction Acute COPD exacerbation Patient is a 83-year-old male with a known history of hypertension, hyperlipidemia, chronic atrial fibrillation on anticoagulation, chronic CHF with systolic dysfunction coronary artery disease with history of CABG and chronic hypoxic respiratory failure secondary to COPD was sent to Hospital from PCPs office due to hypoxia and shortness of breath. Patient has been having shortness of breath and cough and congestion which is getting worse for the past few days. Patient otherwise denied any complaints of fever or chills. Cough with whitish sputum production. No nausea vomiting or diarrhea. No complaints of chest pain. Patient does have slightly increased leg swelling. Chest x-ray showed cardiomegaly redemonstrated with suspected new mild central vascular congestion. Correlate for CHF exacerbation advised. EKG showed atrial fibrillation. Patient is currently saturating in 90s with nausea cannula 2 L oxygen. 12/29/2018 Patient says that his breathing is better today. Being continued on IV Lasix currently. Patient is also on breathing treatments and IV steroids. Pulmonary and cardiology is following. Leg swelling slightly improved. No fever no chills. No nausea vomiting or abdominal pain. Patient is able to sit in the chair and is tolerating oral diet. No other acute overnight issues. Patient is diuresing well. Current medications reviewed. Active Medications Albuterol Sulfate (Ventolin Nebulized) 2.5 mg INHALATION RT-TID [facility] Last Admin: 12/29/18 19:43 Dose: Not Given Albuterol Sulfate (Ventolin Nebulized) 2.5 mg INHALATION RT-Q2H PRN PRN Reason: Shortness Of Breath Or Wheezing Amlodipine Besylate (Norvasc) 5 mg PO DAILY [facility] Last Admin: 12/29/18 08:41 Dose: 5 mg Apixaban (Eliquis) 2.5 mg PO BID [facility] Last Admin: 12/29/18 20:14 Dose: 2.5 mg Atorvastatin Calcium (Lipitor) 20 mg PO DAILY [facility] Last Admin: 12/29/18 08:40 Dose: 20 mg Furosemide (Lasix) 20 mg IV Q12HR [facility] Last Admin: 12/29/18 20:14 Dose: 20 mg Lisinopril (Zestril) 20 mg PO DAILY [facility] Last Admin: 12/29/18 08:40 Dose: 20 mg Methylprednisolone Sodium Succinate (Solu-Medrol) 40 mg IV Q8HR [facility] Last Admin: 12/29/18 17:01 Dose: 40 mg Metoprolol Succinate (Toprol Xl) 50 mg PO DAILY [facility] Last Admin: 12/29/18 08:41 Dose: 50 mg Pantoprazole Sodium (Protonix) 40 mg PO DAILY [facility] Last Admin: 12/29/18 08:41 Dose: 40 mg Spironolactone (Aldactone) 25 mg PO DAILY [facility] Last Admin: 12/29/18 08:41 Dose: 25 mg Objective - Vital Signs Vital signs: Vital Signs Temp 97.6 F 12/29/18 20:00 Pulse 90 12/29/18 20:00 Resp 20 12/29/18 20:00 BP 137/68 12/29/18 20:00 Pulse Ox 94 L 12/29/18 20:00 Intake & Output 12/29/18 12/29/18 12/30/18 06:59 18:59 06:59 Intake Total 350 Balance 350 Weight 106.141 kg Intake: Oral 350 Other: Voiding Method Urinal Urinal # Voids 1 3 - Exam PHYSICAL EXAMINATION: Patient is lying in the bed comfortably, no acute distress, awake alert and oriented.. HEENT: Normocephalic. Neck is supple. Pupils reactive. Nostrils clear. Oral cavity is moist. Ears reveal no drainage. Neck reveals no JVD, carotid bruits, or thyromegaly. CHEST EXAMINATION: Trachea is central. Symmetrical expansion. Bibasilar crackles and mild expiratory wheeze. CARDIAC: Normal S1, S2 with no gallops. No murmurs ABDOMEN: Soft. Bowel sounds normal. No organomegaly. No abdominal bruits. Extremities: 3+ edema. No clubbing or cyanosis Neurologically awake, alert, oriented x3 with well-coordinated movements. No focal deficits noted Skin: No rash or skin lesions. Psychiatric: Coperative. Nonsuicidal Musculoskeletal: No joint swelling or deformity. Normal range of motion. - Labs CBC & Chem 7: 12/29/18 06:11 12/29/18 06:11 Labs: Abnormal Lab Results - Last 24 Hours (Table) 12/29/18 12/29/18 Range/Units 06:11 06:11 RBC 3.24 L (4.30-5.90) m/uL Hgb 8.5 L (13.0-17.5) gm/dL Hct 29.2 L (39.0-53.0) % MCHC 29.1 L (31.0-37.0) g/dL RDW 18.6 H (11.5-15.5) % Plt Count 95 L (150-450) k/uL Lymphocytes # 0.6 L (1.0-4.8) k/uL BUN 29 H (9-20) mg/dL Glucose 144 H (74-99) mg/dL Assessment and Plan Assessment: Shortness of breath secondary to acute on chronic CHF with preserved ejection fraction. Acute COPD exacerbation Elevated troponin/troponin leak likely type II [place]. Trending down Acute on Chronic hypoxic respiratory failure secondary to CHF exacerbation and COPD Chronic atrial fibrillation on anticoagulation at home Coronary disease with history of CABG Hypertension Hyperlipidemia Obesity with BMI 33.6 GERD Plan: Patient will be continued on IV diuresis with Lasix 20 mg twice a day. Continue with IV steroids within treatments and home medications including anticoagulation with Apixaban. Follow up closely and oxygen therapy. Further recommendations based on the clinical course. Prognosis is guarded with multiple medical problems and comorbid conditions. Time with Patient: Greater than 30
[2018-12-30 08:00] LABS: Anisocytosis Slight; Hypochromasia Marked; Poikilocytosis Slight
[2018-12-30 08:13] LABS: Calcium 8.7 mg/dL (8.4-10.2); Potassium 4.5 mmol/L (3.5-5.1)
[2018-12-30] MEDS: SPIRONOLACTONE 25 MG TAB PO SCH (08:33)
[2018-12-30] MEDS: PANTOPRAZOLE 40 MG TABLET PO SCH (08:33)
[2018-12-30 08:34] LABS: HCT 28.2 % (39.0-53.0); HGB 8.3 gm/dL (13.0-17.5); MCH 26.3 pg (25.0-35.0); MCHC 29.6 g/dL (31.0-37.0); Mean Platelet Volume 10.3; Platelet Count 92 k/uL (150-450); RBC 3.17 m/uL (4.30-5.90); RDW 18.8 % (11.5-15.5)
[2018-12-30] MEDS: LISINOPRIL 20 MG TAB PO SCH (08:34)
[2018-12-30] MEDS: FUROSEMIDE 10 MG/ML 2 ML VIAL IV SCH ×2 (08:34→20:05)
[2018-12-30] MEDS: APIXABAN 2.5 MG TABLET PO SCH ×2 (08:34→20:05)
[2018-12-30] MEDS: METOPROLOL SUCCINATE (ER) 50 MG TAB.ER.24H PO SCH (08:34)
[2018-12-30] MEDS: amLODIPine 5 MG TAB PO SCH (08:34)
[2018-12-30] MEDS: ATORVASTATIN 20 MG TAB PO SCH (08:34)
[2018-12-30] MEDS: methylPREDNISolone SOD SUCCI 40 MG/ML 1 ML VIAL IV SCH ×2 (08:36→17:06)
[2018-12-30] MEDS: ALBUTEROL NEBULIZED 2.5 MG/3 ML INHALATION SCH ×3 (08:48→20:14)
[2018-12-30 09:18] LABS: Band Neutrophils % 5 %; Lymphocytes # (M) 0.48 k/uL (1.0-4.8); Metamyelocytes # (M) 0.05 k/uL (0); Metamyelocytes % 1 %; Monocytes # (M) 0.27 k/uL (0-1.0); Myelocytes # (M) 0.05 k/uL (0); Myelocytes % 1 %; Neutrophils % (M) 80 %; Nucleated Red Blood Cells 1 /100 WBC (0-0); Total Cells Counted 200; WBC 5.3 k/uL (3.8-10.6)
[2018-12-30 09:19] LABS: Polychromasia Present
[2018-12-30 11:48] LABS: Glucose,Whole Blood 122 mg/dL (75-99)
[2018-12-30] MEDS: INSULIN ASPART 100 UNIT/ML 1 ML 10 ML VIAL SQ SCH ×3 (11:52→20:57)
--- NOTE | 2018-12-30 12:37 | P.PN ---
Subjective Progress Note Date: 12/30/18 This is a pleasant 83-year-old gentleman with known history of coronary artery disease and prior bypass surgery in 1996, patient also has history of COPD, chronic cor pulmonale, chronic persistent atrial fibrillation, hypertension, hyperlipidemia, he was directed to come to the emergency room after being seen in the office by Dr. Cid are his lung doctor. According to the patient for approximate one week duration he has noticed himself to be quite short of breath, positive PND and orthopnea. Initially he states that the symptoms started with what appeared to be an upper respiratory infection, he states that he was coughing a significant amount of sputum. Chest x-ray on admission here showed cardiomegaly with new central vascular congestion, suggesting congestive heart failure. EKG on presentation here showed atrial fibrillation with a controlled ventricular response. Blood pressure 135/90 with a heart rate in the 80s to 90s, 93% on 3 L of oxygen. White blood cell count 7.2, hemoglobin 8.4, platelet count 93. Sodium 139, potassium 4.8, BUN 35 and creatinine 1.2. BNP level on admission 11,800. Troponin 0.080, 0.092, 0.090. Patient was initiated on IV Lasix on presentation here, he is on anticoagulation in the form of Eliquis for his atrial fibrillation. Patient has diuresed 1999 since the initiation of IV Lasix. He continues to feel short of breath however he does state that there is significant improvement from presentation here. 12/29/2018 Patient seen and examined this morning, blood pressure 136/60, 93% on room air. Weight is down a kilograms today. White blood cell count I.5, hemoglobin 8.5 , platelet count 95. We will continue with IV Lasix for another 24 hours. Echocardiogram with Doppler study was performed which revealed an ejection fraction of 55-60%. 12/30/2018 Patient seen and examined this morning, states he is feeling better, he's been up ambulating without any difficulty. Blood pressure 140/70 with a heart rate in the 90s, 99% on room air. White blood cell count 5.3, hemoglobin 8.3, platelet count 92. Sodium 140, 4.5, BUN 36 and creatinine 1.0. Objective - Vital Signs Vital signs: Vital Signs Temp 98.2 F 12/30/18 08:00 Pulse 92 12/30/18 12:27 Resp 16 12/30/18 11:30 BP 141/75 12/30/18 11:18 Pulse Ox 99 12/30/18 11:18 Intake & Output 12/29/18 12/30/18 12/30/18 18:59 06:59 18:59 Intake Total 236 Output Total 100 320 Balance -100 -84 Weight 106.141 kg 100.6 kg Intake: Oral 236 Output: Urine 100 320 Other: Voiding Method Urinal # Voids 3 1 - Exam PHYSICAL EXAMINATION: GENERAL: 83-year-old gentleman in no acute distress at the time of my examination HEENT: Head is atraumatic, normocephalic. Pupils equal, round. Sclera anicteric. Conjunctiva are clear. Mucous membranes of the mouth are moist. Neck is supple. There is no elevated jugular venous pressure. No carotid bruit is heard. HEART EXAMINATION: Heart S1 and S2 irregularly irregular CHEST EXAMINATION: Lungs clear with fine crackles to the bases. ABDOMEN: Soft, nontender. Bowel sounds are heard. No organomegaly noted. EXTREMITIES: 2+ peripheral pulses with 1+ evidence of peripheral edema and no calf tenderness noted. NEUROLOGIC patient is awake, alert and oriented 3 - Labs CBC & Chem 7: 12/30/18 07:18 12/30/18 07:18 Labs: Abnormal Lab Results - Last 24 Hours (Table) 12/30/18 12/30/18 12/30/18 Range/Units 07:18 07:18 11:46 RBC 3.17 L (4.30-5.90) m/uL Hgb 8.3 L (13.0-17.5) gm/dL Hct 28.2 L (39.0-53.0) % MCHC 29.6 L (31.0-37.0) g/dL RDW 18.8 H (11.5-15.5) % Plt Count 92 L (150-450) k/uL Lymphocytes # (Manual) 0.48 L (1.0-4.8) k/uL Metamyelocytes # (Man) 0.05 H (0) k/uL Myelocytes # (Manual) 0.05 H (0) k/uL Nucleated RBCs 1 H (0-0) /100 WBC Carbon Dioxide 31 H (22-30) mmol/L BUN 36 H (9-20) mg/dL Glucose 132 H (74-99) mg/dL POC Glucose (mg/dL) 122 H (75-99) mg/dL Assessment and Plan Plan: Assessment and plan #1 congestive cardiac failure, LV function unknown #2 chronic persistent atrial fibrillation on Eliquis for anticoagulation #3 known history of coronary artery disease with prior bypass surgery in 1996 #4 hypertension #5 hyperlipidemia #6 COPD, with exacerbation #7 obesity #8 abnormality in troponin, not consistent with acute coronary syndrome with no significant rise and fall pattern, likely resenting a type II [place]. Plan Echocardiogram with Doppler study revealed an ejection fraction of 55-60%. We will continue with current dose of IV Lasix. Continue to monitor intake and output along with daily weights and daily lytes BUN and creatinine. DNP note has been reviewed, I agree with a documented findings and plan of care. Patient was seen and examined.
--- NOTE | 2018-12-30 13:09 | P.PN ---
Subjective Progress Note Date: 12/30/18 Very pleasant 8-year-old gentleman is admitted for CHF and COPD exacerbation. He's been followed by cardiology and pulmonology. He is on Lasix twice a day. Today, the patient says that he's feeling fine, he does not complain of any chest pain racing heart, no cough or shortness of breath, no bowel pain, no nausea and vomiting, no diarrhea constipation. The patient is having right lower extremity swelling more than the left. Objective - Vital Signs Vital signs: Vital Signs Temp 98.2 F 12/30/18 08:00 Pulse 92 12/30/18 12:27 Resp 16 12/30/18 11:30 BP 141/75 12/30/18 11:18 Pulse Ox 99 12/30/18 11:18 Intake & Output 12/29/18 12/30/18 12/30/18 18:59 06:59 18:59 Intake Total 236 Output Total 100 320 Balance -100 -84 Weight 106.141 kg 100.6 kg Intake: Oral 236 Output: Urine 100 320 Other: Voiding Method Urinal # Voids 3 1 - Exam On exam, alert and oriented x3. HEENT: Conjunctivae normal. eyes normal. NECK: No JVD. No thyroid enlargement. No LNs CARDIOVASCULAR: S1, S2 positive irregularly irregular rhythm RESPIRATION: Patient is having wheezing bilaterally at the bases ABDOMEN: Soft, nontender . No guarding. no masses palpable. No ascites, No hepatosplenomegaly.Bowel sounds heard. LEGS: Right lower extremities swelling more than the left. NERVOUS SYSTEM: Cranial N 2-12 grossly normal. Moves all 4 limbs. No focal deficits. No sensory deficit. No signs of cerebellar dysfucntion. Skin: no ulcer no rash - Labs CBC & Chem 7: 12/30/18 07:18 12/30/18 07:18 Labs: Abnormal Lab Results - Last 24 Hours (Table) 12/30/18 12/30/18 12/30/18 Range/Units 07:18 07:18 11:46 RBC 3.17 L (4.30-5.90) m/uL Hgb 8.3 L (13.0-17.5) gm/dL Hct 28.2 L (39.0-53.0) % MCHC 29.6 L (31.0-37.0) g/dL RDW 18.8 H (11.5-15.5) % Plt Count 92 L (150-450) k/uL Lymphocytes # (Manual) 0.48 L (1.0-4.8) k/uL Metamyelocytes # (Man) 0.05 H (0) k/uL Myelocytes # (Manual) 0.05 H (0) k/uL Nucleated RBCs 1 H (0-0) /100 WBC Carbon Dioxide 31 H (22-30) mmol/L BUN 36 H (9-20) mg/dL Glucose 132 H (74-99) mg/dL POC Glucose (mg/dL) 122 H (75-99) mg/dL Assessment and Plan Assessment: - Acute CHF exacerbation - Acute COPD exacerbation - History of A. fib on alk phos - Hypertension - Hyperlipidemia - GERD - Right lower swelling more than the left Plan - Patient is on Lasix as per cardiology recommendation. - Monitor I's and O's - Echo showed preserved ejection fraction - We'll also order for ultrasound of the right lower extremities - Patient is on IV steroids as per pulmonology recommendation for COPD. - Continue rest of the medications - Continue anticoagulation - We'll follow the patient
--- NOTE | 2018-12-30 15:29 | US ---
EXAMINATION TYPE: US venous doppler duplex LE RT DATE OF EXAM: 12/30/2018 1:51 PM COMPARISON: NONE CLINICAL HISTORY: right lower leg swelling. SIDE PERFORMED: Right TECHNIQUE: The lower extremity deep venous system is examined utilizing real time linear array sonog mahin with graded compression, doppler sonography and color-flow sonography. VESSELS IMAGED: External Iliac Vein (EIV) Common Femoral Vein Deep Femoral Vein Greater Saphenous Vein * Femoral Vein Popliteal Vein Small Saphenous Vein * Proximal Calf Veins (* superficial vessels) There is normal flow, compressibility, vascular waveforms Right Leg: Negative for DVT IMPRESSION: No evident deep venous thrombosis at or above the right knee, follow-up as indicated
--- NOTE | 2018-12-30 15:56 | P.PN ---
Subjective Progress Note Date: 12/30/18 Principal diagnosis: Hypoxemic respiratory failure secondary to acute exacerbation of chronic systolic congestive heart failure and exacerbation of COPD This is a very pleasant 83-year-old gentleman who follows with Dr. Beyer is his primary care physician. He has a history of chronic hypoxic respiratory failure secondary to chronic obstructive pulmonary disease, chronic cor pulmonale, atrial fibrillation, chronic systolic congestive heart failure, chronic dyspnea on exertion, coronary artery disease with previous coronary artery bypass grafting, hypertension. He was in our office yesterday seen Dr. Beyer and he was found to have significant oxygen desaturations that went along with his complaints of increasing shortness of breath cough and congestion. He was directed to the emergency room from there. Asked x-ray revealed evidence of cardiomegaly with mild central vascular congestion. EKG reveals atrial fibrillation with a controlled ventricular response and some possible ischemic changes in the anterior lateral leads. Troponin 0.08, 0.09, 0.09, proBNP 11,800. D-dimer 0.33. White count 7.2. Hemoglobin 8.4. Platelet count 93,000. INR 1.2. He is seen today in consultation in the emergency room. He is currently awake and alert in mild respiratory distress. He's been afebrile. Slightly tachycardic. Maintain O2 saturations in the 90s on 3 L/m per nasal cannula. He has been initiated on IV diuretics, IV Solu- Medrol, bronchodilators. He is anticoagulated with Eliquis. Patient was seen today 12/29/2017 in follow-up on the selective care unit. He is awake and alert in no acute distress. He is improved today as compared to yesterday. He remains in atrial fibrillation. His rate is better controlled. He has continued lower extremity edema. He continues to diurese. White count 5.1. Hemoglobin 8.5. Creatinine 1.15. He remains on IV diuretics. IV Solu- Medrol. Anticoagulated with Eliquis. On 12/30/2018 patient seen in follow-up. He sitting up on a jet bed, in no acute distress, he is on room air, his pulse ox is 99%, he is afebrile, respirations are even and nonlabored, lung sounds positive for some minimal wheezes. No cough, no chest congestion. Patient is diuresing, Lyme status is improving, still has some swelling in his legs, right greater than the left, extremity Doppler was negative for any DVT. No complaints of chest pain, palpitations. He remains in A. fib, his rate is controlled. He is on anticoagulation. These labs have been reviewed, showed a white blood cell count of 5.3, hemoglobin of 8.3, sodium is 140, potassium is 4.5, chloride is 100, CO2 31, B1 is 36, creatinine is 1.02 Objective - Vital Signs Vital signs: Vital Signs Temp 98.2 F 12/30/18 08:00 Pulse 96 12/30/18 15:44 Resp 16 12/30/18 15:44 BP 141/75 12/30/18 11:18 Pulse Ox 99 12/30/18 11:18 Intake & Output 12/29/18 12/30/18 12/30/18 18:59 06:59 18:59 Intake Total 236 Output Total 100 320 Balance -100 -84 Weight 106.141 kg 100.6 kg Intake: Oral 236 Output: Urine 100 320 Other: Voiding Method Urinal # Voids 3 1 - Exam GENERAL EXAM: Alert, active, comfortable in no apparent distress. HEAD: Normocephalic/atraumatic. EYES: Normal reaction of pupils, equal size. Conjunctiva pink, sclera white. NOSE: Clear with pink turbinates. THROAT: No erythema or exudates. NECK: No masses, no JVD, no thyroid enlargement, no adenopathy. CHEST: No chest wall deformity. Symmetrical expansion. LUNGS: Equal air entry with minimal wheezes CVS: Regular rate and rhythm, normal S1 and S2, no gallops, no murmurs, no rubs ABDOMEN: Soft, nontender. No hepatosplenomegaly, normal bowel sounds, no guarding or rigidity. EXTREMITIES: No clubbing, 1+ lower extremity edema, right greater than the left no cyanosis, 2+ pulses and upper and lower extremities. MUSCULOSKELETAL: Muscle strength and tone normal. SPINE: No scoliosis or deformity SKIN: No rashes CENTRAL NERVOUS SYSTEM: Alert and oriented -3. No focal deficits, tone is normal in all 4 extremities. PSYCHIATRIC: Alert and oriented -3. Appropriate affect. Intact judgment and insight. - Labs CBC & Chem 7: 12/30/18 07:18 12/30/18 07:18 Labs: Abnormal Lab Results - Last 24 Hours (Table) 12/30/18 12/30/18 12/30/18 Range/Units 07:18 07:18 11:46 RBC 3.17 L (4.30-5.90) m/uL Hgb 8.3 L (13.0-17.5) gm/dL Hct 28.2 L (39.0-53.0) % MCHC 29.6 L (31.0-37.0) g/dL RDW 18.8 H (11.5-15.5) % Plt Count 92 L (150-450) k/uL Lymphocytes # (Manual) 0.48 L (1.0-4.8) k/uL Metamyelocytes # (Man) 0.05 H (0) k/uL Myelocytes # (Manual) 0.05 H (0) k/uL Nucleated RBCs 1 H (0-0) /100 WBC Carbon Dioxide 31 H (22-30) mmol/L BUN 36 H (9-20) mg/dL Glucose 132 H (74-99) mg/dL POC Glucose (mg/dL) 122 H (75-99) mg/dL Assessment and Plan Plan: #1 Acute hypoxemic respiratory failure secondary to an acute exacerbation of chronic diastolic congestive heart failure along with an acute exacerbation of chronic obstructive pulmonary disease. Echocardiogram reveals preserved left ventricular systolic function. There is moderate to severe pulmonary hypertension. #2 Acute exacerbation of chronic obstructive pulmonary disease, FEV1 value 65% of predicted. #3 Coronary artery disease with previous coronary artery bypass grafting. #4 Paroxysmal atrial fibrillation, anticoagulated with Eliquis. #5 Morbid obesity. #6 Hyperlipidemia. #7 Gastroesophageal reflux disease. #8 Hypertension. Plan: Continue current medical treatment, diuretics, nebulized bronchodilators, IV Solu-Medrol. Volume status is improving, still has some residual swelling in his lower extremities. Minimal wheezing, less dyspneic, no significant chest congestion. Continue current medical treatment I performed a history & physical examination of the patient and discussed their management with my nurse practitioner, Angélica Holguin. I reviewed the nurse practitioner's note and agree with the documented findings and plan of care. Lung sounds are positive for minimal end expiratory wheezes. The findings and the impression was discussed with the patient. I attest to the documentation by the nurse practitioner. Time with Patient: Less than 30
[2018-12-30 17:06] LABS: Glucose,Whole Blood 140 mg/dL (75-99)
[2018-12-30 19:14] LABS: Hemoglobin A1C 5.9 % (4.0-6.0)
[2018-12-30 20:26] LABS: Glucose,Whole Blood 131 mg/dL (75-99)
[2018-12-31] MEDS: methylPREDNISolone SOD SUCCI 40 MG/ML 1 ML VIAL IV SCH ×4 (00:06→23:34)
[2018-12-31 05:58] LABS: Glucose,Whole Blood 136 mg/dL (75-99)
[2018-12-31] MEDS: INSULIN ASPART 100 UNIT/ML 1 ML 10 ML VIAL SQ SCH ×4 (06:05→21:20)
[2018-12-31 06:41] LABS: Anisocytosis Slight; HCT 29.2 % (39.0-53.0); HGB 8.6 gm/dL (13.0-17.5); Hypochromasia Marked; MCH 26.8 pg (25.0-35.0); MCHC 29.5 g/dL (31.0-37.0); MCV 90.8 fL (80.0-100.0); Mean Platelet Volume 8.5; Platelet Count 116 k/uL (150-450); Poikilocytosis Slight; RBC 3.21 m/uL (4.30-5.90); WBC 7.1 k/uL (3.8-10.6)
[2018-12-31 07:06] LABS: Calcium 8.8 mg/dL (8.4-10.2); Potassium 4.5 mmol/L (3.5-5.1)
[2018-12-31] MEDS: ALBUTEROL NEBULIZED 2.5 MG/3 ML INHALATION SCH ×3 (08:06→20:23)
[2018-12-31] MEDS ORDERED: FAMOTIDINE 20 MG TAB ONE (08:57)
[2018-12-31] MEDS: amLODIPine 5 MG TAB PO SCH (09:00)
[2018-12-31] MEDS: SPIRONOLACTONE 25 MG TAB PO SCH (09:01)
[2018-12-31] MEDS: LISINOPRIL 20 MG TAB PO SCH (09:01)
[2018-12-31] MEDS: APIXABAN 2.5 MG TABLET PO SCH ×2 (09:01→21:19)
[2018-12-31] MEDS: ATORVASTATIN 20 MG TAB PO SCH (09:01)
[2018-12-31] MEDS: FUROSEMIDE 10 MG/ML 2 ML VIAL IV SCH ×2 (09:01→21:19)
[2018-12-31] MEDS: PANTOPRAZOLE 40 MG TABLET PO SCH (09:01)
[2018-12-31] MEDS: METOPROLOL SUCCINATE (ER) 50 MG TAB.ER.24H PO SCH (09:01)
[2018-12-31 12:05] LABS: Glucose,Whole Blood 125 mg/dL (75-99)
--- NOTE | 2018-12-31 14:57 | P.PN ---
Subjective Progress Note Date: 12/31/18 This is a pleasant 83-year-old gentleman with a history of CAD and prior bypass surgery 1996, COPD, cor pulmonale, chronic atrial fibrillation, hypertension, hyperlipidemia. He was directed to come to the emergency department after being seen in the office by Dr. Carpenter. The patient for approximately a week he noticed himself to be quite short of breath with PND and orthopnea. Chest x- ray on admission showed cardiomegaly with new central vascular congestion, suggestive of congestive heart failure. He was initiated on IV Lasix and has been diuresing well. Upon examination this morning, patient is sitting up at the side of the bed. He is feeling somewhat better but continues to complain of some trouble breathing and continues to have some lower extremity edema. He remains on Lasix 20 mg IV push every 12 hours and his renal function is stable. Objective - Vital Signs Vital signs: Vital Signs Temp 98.0 F 12/31/18 08:00 Pulse 88 12/31/18 12:24 Resp 16 12/31/18 11:23 BP 131/64 12/31/18 11:22 Pulse Ox 94 L 12/31/18 11:22 Intake & Output 12/30/18 12/31/18 12/31/18 18:59 06:59 18:59 Intake Total 416 200 Output Total 320 300 Balance 96 -100 Weight 100.6 kg 99.5 kg Intake: Oral 416 200 Output: Urine 320 300 Other: Voiding Method Urinal # Voids 1 2 1 - Exam GENERAL: 83-year-old gentleman in no acute distress at the time of my examination HEENT: Head is atraumatic, normocephalic. Pupils equal, round. Sclera anicteric. Conjunctiva are clear. Mucous membranes of the mouth are moist. Neck is supple. There is no elevated jugular venous pressure. No carotid bruit is heard. HEART EXAMINATION: Heart S1 and S2 irregularly irregular CHEST EXAMINATION: Lungs clear with fine crackles to the bases. ABDOMEN: Soft, nontender. Bowel sounds are heard. No organomegaly noted. EXTREMITIES: 2+ peripheral pulses with 1+ noted to the right lower extremity and trace edema to the left lower extremity and no calf tenderness noted. NEUROLOGIC patient is awake, alert and oriented 3 - Labs CBC & Chem 7: 12/31/18 05:51 12/31/18 05:51 Labs: Abnormal Lab Results - Last 24 Hours (Table) 12/30/18 12/30/18 12/31/18 Range/Units 16:43 20:25 05:51 RBC 3.21 L (4.30-5.90) m/uL Hgb 8.6 L (13.0-17.5) gm/dL Hct 29.2 L (39.0-53.0) % MCHC 29.5 L (31.0-37.0) g/dL RDW 19.0 H (11.5-15.5) % Plt Count 116 L (150-450) k/uL Carbon Dioxide (22-30) mmol/L BUN (9-20) mg/dL Glucose (74-99) mg/dL POC Glucose (mg/dL) 140 H 131 H (75-99) mg/dL 12/31/18 12/31/18 12/31/18 Range/Units 05:51 05:57 11:58 RBC (4.30-5.90) m/uL Hgb (13.0-17.5) gm/dL Hct (39.0-53.0) % MCHC (31.0-37.0) g/dL RDW (11.5-15.5) % Plt Count (150-450) k/uL Carbon Dioxide 31 H (22-30) mmol/L BUN 35 H (9-20) mg/dL Glucose 125 H (74-99) mg/dL POC Glucose (mg/dL) 136 H 125 H (75-99) mg/dL Assessment and Plan Assessment: 1 acute on chronic diastolic congestive heart failure #2 chronic atrial fibrillation #3 history of CAD with prior bypass surgery 1996 #4 hypertension #5 hyperlipidemia #6 exacerbation of COPD Plan: From cardiology's perspective, medications were reviewed and will continue the same. We will continue to follow the patient right further recommendations accordingly. SOFTWARE DEVELOPER MANAGER note has been reviewed, I agree with a documented findings and plan of care. Patient was seen and examined.
--- NOTE | 2018-12-31 17:00 | P.PN ---
Subjective Progress Note Date: 12/31/18 Principal diagnosis: Acute hypoxemic respiratory failure secondary to an acute exacerbation of chronic systolic congestive heart failure, exacerbation of COPD This is a very pleasant 83-year-old gentleman who follows with Dr. Beyer is his primary care physician. He has a history of chronic hypoxic respiratory failure secondary to chronic obstructive pulmonary disease, chronic cor pulmonale, atrial fibrillation, chronic systolic congestive heart failure, chronic dyspnea on exertion, coronary artery disease with previous coronary artery bypass grafting, hypertension. He was in our office yesterday seen Dr. Beyer and he was found to have significant oxygen desaturations that went along with his complaints of increasing shortness of breath cough and congestion. He was directed to the emergency room from there. Asked x-ray revealed evidence of cardiomegaly with mild central vascular congestion. EKG reveals atrial fibrillation with a controlled ventricular response and some possible ischemic changes in the anterior lateral leads. Troponin 0.08, 0.09, 0.09, proBNP 11,800. D-dimer 0.33. White count 7.2. Hemoglobin 8.4. Platelet count 93,000. INR 1.2. He is seen today in consultation in the emergency room. He is currently awake and alert in mild respiratory distress. He's been afebrile. Slightly tachycardic. Maintain O2 saturations in the 90s on 3 L/m per nasal cannula. He has been initiated on IV diuretics, IV Solu- Medrol, bronchodilators. He is anticoagulated with Eliquis. Patient was seen today 12/29/2017 in follow-up on the selective care unit. He is awake and alert in no acute distress. He is improved today as compared to yesterday. He remains in atrial fibrillation. His rate is better controlled. He has continued lower extremity edema. He continues to diurese. White count 5.1. Hemoglobin 8.5. Creatinine 1.15. He remains on IV diuretics. IV Solu- Medrol. Anticoagulated with Eliquis. On 12/30/2018 patient seen in follow-up. He sitting up on a jet bed, in no acute distress, he is on room air, his pulse ox is 99%, he is afebrile, respirations are even and nonlabored, lung sounds positive for some minimal wheezes. No cough, no chest congestion. Patient is diuresing, Lyme status is improving, still has some swelling in his legs, right greater than the left, extremity Doppler was negative for any DVT. No complaints of chest pain, palpitations. He remains in A. fib, his rate is controlled. He is on anticoagulation. These labs have been reviewed, showed a white blood cell count of 5.3, hemoglobin of 8.3, sodium is 140, potassium is 4.5, chloride is 100, CO2 31, B1 is 36, creatinine is 1.02 The patient is seen again today 12/31/2017 in follow-up on the selective care unit. He is currently resting comfortably in bed. He is awake and alert in no acute distress. He is maintaining O2 saturations in the 90s on 2 L/m per nasal cannula. He is still somewhat dyspneic on minimal exertion. White count 7.1. Hemoglobin 8.6. Creatinine 0.99. Igor on Lasix 20 mg IV U 12 hours. He is continued on bronchodilators and IV Solu-Medrol. Objective - Vital Signs Vital signs: Vital Signs Temp 98.0 F 12/31/18 08:00 Pulse 78 12/31/18 16:17 Resp 16 12/31/18 11:23 BP 131/64 12/31/18 11:22 Pulse Ox 94 L 12/31/18 11:22 Intake & Output 12/30/18 12/31/18 12/31/18 18:59 06:59 18:59 Intake Total 416 200 Output Total 320 300 Balance 96 -100 Weight 100.6 kg 99.5 kg Intake: Oral 416 200 Output: Urine 320 300 Other: Voiding Method Urinal # Voids 1 2 1 - Exam GENERAL EXAM: Alert, comfortable in no apparent distress. O2 saturation in the 90s on 2 L/m per nasal cannula. HEAD: Normocephalic. EYES: Normal reaction of pupils, equal size. NOSE: Clear with pink turbinates. THROAT: No erythema or exudates. NECK: No masses, no JVD. CHEST: No chest wall deformity. LUNGS: Equal air entry with scattered rhonchi, crackles in the posterior bases. CVS: S1 and S2 normal with no audible murmur, irregular rhythm. ABDOMEN: No hepatosplenomegaly, normal bowel sounds, no guarding or rigidity. SPINE: No scoliosis or deformity SKIN: No rashes CENTRAL NERVOUS SYSTEM: No focal deficits, tone is normal in all 4 extremities. EXTREMITIES: There is 2+ peripheral edema. No clubbing, no cyanosis. Peripheral pulses are intact. - Labs CBC & Chem 7: 12/31/18 05:51 12/31/18 05:51 Labs: Abnormal Lab Results - Last 24 Hours (Table) 12/30/18 12/30/18 12/31/18 Range/Units 16:43 20:25 05:51 RBC 3.21 L (4.30-5.90) m/uL Hgb 8.6 L (13.0-17.5) gm/dL Hct 29.2 L (39.0-53.0) % MCHC 29.5 L (31.0-37.0) g/dL RDW 19.0 H (11.5-15.5) % Plt Count 116 L (150-450) k/uL Carbon Dioxide (22-30) mmol/L BUN (9-20) mg/dL Glucose (74-99) mg/dL POC Glucose (mg/dL) 140 H 131 H (75-99) mg/dL 12/31/18 12/31/18 12/31/18 Range/Units 05:51 05:57 11:58 RBC (4.30-5.90) m/uL Hgb (13.0-17.5) gm/dL Hct (39.0-53.0) % MCHC (31.0-37.0) g/dL RDW (11.5-15.5) % Plt Count (150-450) k/uL Carbon Dioxide 31 H (22-30) mmol/L BUN 35 H (9-20) mg/dL Glucose 125 H (74-99) mg/dL POC Glucose (mg/dL) 136 H 125 H (75-99) mg/dL Assessment and Plan Assessment: Impression: #1 Acute hypoxemic respiratory failure secondary to an acute exacerbation of chronic diastolic congestive heart failure along with an acute exacerbation of chronic obstructive pulmonary disease. Echocardiogram reveals preserved left ventricular systolic function. There is moderate to severe pulmonary hypertension. He is continued on IV diuretics. #2 Acute exacerbation of chronic obstructive pulmonary disease, FEV1 value 65% of predicted. #3 Coronary artery disease with previous coronary artery bypass grafting. #4 Paroxysmal atrial fibrillation, anticoagulated with Eliquis. #5 Morbid obesity. #6 Hyperlipidemia. #7 Gastroesophageal reflux disease. #8 Hypertension. Plan: The patient was seen and evaluated by Dr. Altamirano. Still with some dyspnea on minimal exertion. Continue the current treatment plan. Increase his activity as tolerated. We'll continue to follow and make further recommendations based on his clinical status. I, the cosigning physician, performed a history & physical examination of the patient. Lungs sounds with bilateral end expiratory wheeze, crackles in the posterior bases, diminished. Maintaining good O2 saturations in the 90s on 2 L/ m per nasal cannula. I discussed the assessment and plan of care with my nurse practitioner, Aliyah Sharpe. I attest to the above note as dictated by her.
[2018-12-31 17:30] LABS: Glucose,Whole Blood 125 mg/dL (75-99)
--- NOTE | 2018-12-31 19:24 | P.PN ---
Subjective Very pleasant 8-year-old gentleman is admitted for CHF and COPD exacerbation. He's been followed by cardiology and pulmonology. He is on Lasix twice a day. 12/30 Today, the patient says that he's feeling fine, he does not complain of any chest pain racing heart, no cough or shortness of breath, no bowel pain, no nausea and vomiting, no diarrhea constipation. The patient is having right lower extremity swelling more than the left. 12/31 Says that he is feeling better but is still having sob with exertion No chest pain , no racing heart. no abd pain, no racing heart. Objective - Vital Signs Vital signs: Vital Signs Temp 97.5 F L 12/31/18 16:51 Pulse 95 12/31/18 16:51 Resp 18 12/31/18 16:51 BP 127/81 12/31/18 16:51 Pulse Ox 95 12/31/18 16:51 Intake & Output 12/31/18 12/31/18 01/01/19 06:59 18:59 06:59 Intake Total 610 Output Total 300 Balance 310 Weight 99.5 kg Intake: Oral 610 Output: Urine 300 Other: Voiding Method Urinal # Voids 2 1 - Exam On exam, alert and oriented x3. HEENT: Conjunctivae normal. eyes normal. NECK: No JVD. No thyroid enlargement. No LNs CARDIOVASCULAR: S1, S2 positive irregularly irregular rhythm RESPIRATION: Patient is having wheezing bilaterally at the bases ABDOMEN: Soft, nontender . No guarding. no masses palpable. No ascites, No hepatosplenomegaly.Bowel sounds heard. LEGS: Right lower extremities swelling more than the left. NERVOUS SYSTEM: Cranial N 2-12 grossly normal. Moves all 4 limbs. No focal deficits. No sensory deficit. No signs of cerebellar dysfucntion. Skin: no ulcer no rash - Labs CBC & Chem 7: 12/31/18 05:51 12/31/18 05:51 Labs: Abnormal Lab Results - Last 24 Hours (Table) 12/30/18 12/31/18 12/31/18 Range/Units 20:25 05:51 05:51 RBC 3.21 L (4.30-5.90) m/uL Hgb 8.6 L (13.0-17.5) gm/dL Hct 29.2 L (39.0-53.0) % MCHC 29.5 L (31.0-37.0) g/dL RDW 19.0 H (11.5-15.5) % Plt Count 116 L (150-450) k/uL Carbon Dioxide 31 H (22-30) mmol/L BUN 35 H (9-20) mg/dL Glucose 125 H (74-99) mg/dL POC Glucose (mg/dL) 131 H (75-99) mg/dL 12/31/18 12/31/18 12/31/18 Range/Units 05:57 11:58 17:01 RBC (4.30-5.90) m/uL Hgb (13.0-17.5) gm/dL Hct (39.0-53.0) % MCHC (31.0-37.0) g/dL RDW (11.5-15.5) % Plt Count (150-450) k/uL Carbon Dioxide (22-30) mmol/L BUN (9-20) mg/dL Glucose (74-99) mg/dL POC Glucose (mg/dL) 136 H 125 H 125 H (75-99) mg/dL Assessment and Plan Assessment: - Acute CHF exacerbation - Acute COPD exacerbation - History of A. fib on alk phos - Hypertension - Hyperlipidemia - GERD - Right lower swelling more than the left Plan - Patient is on Lasix as per cardiology recommendation. - Monitor I's and O's - us right lower ext negative for dvt - Continue sterois as per pulm recommenadtions - Will continue rest of the care - Will f/u Time with Patient: Greater than 30
[2019-01-01] MEDS: ALBUTEROL NEBULIZED 2.5 MG/3 ML INHALATION SCH ×3 (06:02→20:23)
[2019-01-01 07:01] LABS: Glucose,Whole Blood 142 mg/dL (75-99)
[2019-01-01 07:17] LABS: Anisocytosis Slight; HCT 28.9 % (39.0-53.0); HGB 8.6 gm/dL (13.0-17.5); Hypochromasia Marked; MCH 27.1 pg (25.0-35.0); MCHC 29.9 g/dL (31.0-37.0); MCV 90.6 fL (80.0-100.0); Mean Platelet Volume 9.5; Platelet Count 111 k/uL (150-450); Poikilocytosis Slight; RBC 3.19 m/uL (4.30-5.90); RDW 19.1 % (11.5-15.5); WBC 6.2 k/uL (3.8-10.6)
[2019-01-01 07:24] LABS: Calcium 8.9 mg/dL (8.4-10.2); Potassium 4.5 mmol/L (3.5-5.1)
[2019-01-01] MEDS: INSULIN ASPART 100 UNIT/ML 1 ML 10 ML VIAL SQ SCH ×4 (08:04→20:14)
[2019-01-01] MEDS: APIXABAN 2.5 MG TABLET PO SCH ×2 (08:06→20:14)
[2019-01-01] MEDS: methylPREDNISolone SOD SUCCI 40 MG/ML 1 ML VIAL IV SCH ×3 (08:06→23:30)
[2019-01-01] MEDS: LISINOPRIL 20 MG TAB PO SCH (08:06)
[2019-01-01] MEDS: PANTOPRAZOLE 40 MG TABLET PO SCH (08:06)
[2019-01-01] MEDS: amLODIPine 5 MG TAB PO SCH (08:06)
[2019-01-01] MEDS: ATORVASTATIN 20 MG TAB PO SCH (08:06)
[2019-01-01] MEDS: SPIRONOLACTONE 25 MG TAB PO SCH (08:07)
[2019-01-01] MEDS: FUROSEMIDE 10 MG/ML 2 ML VIAL IV SCH ×2 (08:07→20:14)
[2019-01-01] MEDS: METOPROLOL SUCCINATE (ER) 50 MG TAB.ER.24H PO SCH (09:17)
[2019-01-01 11:29] LABS: Glucose,Whole Blood 109 mg/dL (75-99)
--- NOTE | 2019-01-01 14:11 | P.PN ---
Subjective Progress Note Date: 01/01/19 Principal diagnosis: Acute hypoxemic respiratory failure secondary to an acute exacerbation of chronic systolic congestive heart failure, exacerbation of COPD This is a very pleasant 83-year-old gentleman who follows with Dr. Beyer is his primary care physician. He has a history of chronic hypoxic respiratory failure secondary to chronic obstructive pulmonary disease, chronic cor pulmonale, atrial fibrillation, chronic systolic congestive heart failure, chronic dyspnea on exertion, coronary artery disease with previous coronary artery bypass grafting, hypertension. He was in our office yesterday seen Dr. Beyer and he was found to have significant oxygen desaturations that went along with his complaints of increasing shortness of breath cough and congestion. He was directed to the emergency room from there. Asked x-ray revealed evidence of cardiomegaly with mild central vascular congestion. EKG reveals atrial fibrillation with a controlled ventricular response and some possible ischemic changes in the anterior lateral leads. Troponin 0.08, 0.09, 0.09, proBNP 11,800. D-dimer 0.33. White count 7.2. Hemoglobin 8.4. Platelet count 93,000. INR 1.2. He is seen today in consultation in the emergency room. He is currently awake and alert in mild respiratory distress. He's been afebrile. Slightly tachycardic. Maintain O2 saturations in the 90s on 3 L/m per nasal cannula. He has been initiated on IV diuretics, IV Solu- Medrol, bronchodilators. He is anticoagulated with Eliquis. Patient was seen today 12/29/2017 in follow-up on the selective care unit. He is awake and alert in no acute distress. He is improved today as compared to yesterday. He remains in atrial fibrillation. His rate is better controlled. He has continued lower extremity edema. He continues to diurese. White count 5.1. Hemoglobin 8.5. Creatinine 1.15. He remains on IV diuretics. IV Solu- Medrol. Anticoagulated with Eliquis. On 12/30/2018 patient seen in follow-up. He sitting up on a jet bed, in no acute distress, he is on room air, his pulse ox is 99%, he is afebrile, respirations are even and nonlabored, lung sounds positive for some minimal wheezes. No cough, no chest congestion. Patient is diuresing, Lyme status is improving, still has some swelling in his legs, right greater than the left, extremity Doppler was negative for any DVT. No complaints of chest pain, palpitations. He remains in A. fib, his rate is controlled. He is on anticoagulation. These labs have been reviewed, showed a white blood cell count of 5.3, hemoglobin of 8.3, sodium is 140, potassium is 4.5, chloride is 100, CO2 31, B1 is 36, creatinine is 1.02 The patient is seen again today 12/31/2017 in follow-up on the selective care unit. He is currently resting comfortably in bed. He is awake and alert in no acute distress. He is maintaining O2 saturations in the 90s on 2 L/m per nasal cannula. He is still somewhat dyspneic on minimal exertion. White count 7.1. Hemoglobin 8.6. Creatinine 0.99. Igor on Lasix 20 mg IV U 12 hours. He is continued on bronchodilators and IV Solu-Medrol. The patient is seen today 01/01/2019 in follow-up on the regular medical floor. He is awake and alert in no acute distress. He is breathing easier today as compared to yesterday. He is maintaining good O2 saturations in the 90s on 2 L/ m per nasal cannula. He's been afebrile. Hemodynamically stable. His weight is down another kilogram. White count 6.2. Hemoglobin 8.6. Creatinine 0.99. He remains on Lasix 20 mg IV push every 12 hours. He is continued on bronchodilators and IV Solu-Medrol. Less wheezing. Less lower extremity edema. Objective - Vital Signs Vital signs: Vital Signs Temp 97.7 F 01/01/19 12:10 Pulse 92 01/01/19 13:23 Resp 20 01/01/19 13:12 BP 122/68 01/01/19 12:10 Pulse Ox 95 01/01/19 12:10 Intake & Output 12/31/18 01/01/19 01/01/19 18:59 06:59 18:59 Intake Total 610 240 Output Total 300 Balance 310 240 Weight 98.5 kg Intake: Oral 610 240 Output: Urine 300 Other: Voiding Method Urinal Urinal # Voids 1 2 # Bowel Movements 1 - Exam GENERAL EXAM: Alert, comfortable in no apparent distress. O2 saturation in the 90s on 2 L/m per nasal cannula. HEAD: Normocephalic. EYES: Normal reaction of pupils, equal size. NOSE: Clear with pink turbinates. THROAT: No erythema or exudates. NECK: No masses, no JVD. CHEST: No chest wall deformity. LUNGS: Equal air entry with scattered rhonchi, crackles in the posterior bases. CVS: S1 and S2 normal with no audible murmur, irregular rhythm. ABDOMEN: No hepatosplenomegaly, normal bowel sounds, no guarding or rigidity. SPINE: No scoliosis or deformity SKIN: No rashes CENTRAL NERVOUS SYSTEM: No focal deficits, tone is normal in all 4 extremities. EXTREMITIES: There is 2+ peripheral edema. No clubbing, no cyanosis. Peripheral pulses are intact. - Labs CBC & Chem 7: 01/01/19 06:29 01/01/19 06:29 Labs: Abnormal Lab Results - Last 24 Hours (Table) 12/31/18 01/01/19 01/01/19 Range/Units 17:01 06:29 06:29 RBC 3.19 L (4.30-5.90) m/uL Hgb 8.6 L (13.0-17.5) gm/dL Hct 28.9 L (39.0-53.0) % MCHC 29.9 L (31.0-37.0) g/dL RDW 19.1 H (11.5-15.5) % Plt Count 111 L (150-450) k/uL Carbon Dioxide 32 H (22-30) mmol/L BUN 33 H (9-20) mg/dL Glucose 127 H (74-99) mg/dL POC Glucose (mg/dL) 125 H (75-99) mg/dL 01/01/19 01/01/19 Range/Units 07:00 11:28 RBC (4.30-5.90) m/uL Hgb (13.0-17.5) gm/dL Hct (39.0-53.0) % MCHC (31.0-37.0) g/dL RDW (11.5-15.5) % Plt Count (150-450) k/uL Carbon Dioxide (22-30) mmol/L BUN (9-20) mg/dL Glucose (74-99) mg/dL POC Glucose (mg/dL) 142 H 109 H (75-99) mg/dL Assessment and Plan Assessment: Impression: #1 Acute hypoxemic respiratory failure secondary to an acute exacerbation of chronic diastolic congestive heart failure along with an acute exacerbation of chronic obstructive pulmonary disease. Echocardiogram reveals preserved left ventricular systolic function. There is moderate to severe pulmonary hypertension. He is continued on IV diuretics. #2 Acute exacerbation of chronic obstructive pulmonary disease, FEV1 value 65% of predicted. He's been treated and improved. #3 Coronary artery disease with previous coronary artery bypass grafting. #4 Paroxysmal atrial fibrillation, anticoagulated with Eliquis. #5 Morbid obesity. #6 Hyperlipidemia. #7 Gastroesophageal reflux disease. #8 Hypertension. Plan: The patient was seen and evaluated by Dr. Altamirano. We'll go ahead and switch him to oral prednisone taper. Continue bronchodilators. Diuretics per cardiology. Increase his activity as tolerated. We'll continue to follow and make further recommendations based on his clinical status. I, the cosigning physician, performed a history & physical examination of the patient. Lungs sounds with crackles in the posterior bases, diminished. Maintaining good O2 saturations in the 90s on 2 L/m per nasal cannula. I discussed the assessment and plan of care with my nurse practitioner, Aliyah Sharpe. I attest to the above note as dictated by her.
--- NOTE | 2019-01-01 15:40 | P.PN ---
Subjective Very pleasant 8-year-old gentleman is admitted for CHF and COPD exacerbation. He's been followed by cardiology and pulmonology. He is on Lasix twice a day. 12/30 Today, the patient says that he's feeling fine, he does not complain of any chest pain racing heart, no cough or shortness of breath, no bowel pain, no nausea and vomiting, no diarrhea constipation. The patient is having right lower extremity swelling more than the left. 12/31 Says that he is feeling better but is still having sob with exertion No chest pain , no racing heart. no abd pain, no racing heart. 01/01 Patient says that he's feeling better. He is walking but descending on ablation No chest pain or racing heart Objective - Vital Signs Vital signs: Vital Signs Temp 97.7 F 01/01/19 12:10 Pulse 109 H 01/01/19 14:36 Resp 20 01/01/19 13:12 BP 122/68 01/01/19 12:10 Pulse Ox 88 L 01/01/19 14:36 Intake & Output 12/31/18 01/01/19 01/01/19 18:59 06:59 18:59 Intake Total 610 240 Output Total 300 Balance 310 240 Weight 98.5 kg Intake: Oral 610 240 Output: Urine 300 Other: Voiding Method Urinal Urinal # Voids 1 2 # Bowel Movements 1 - Exam On exam, alert and oriented x3. HEENT: Conjunctivae normal. eyes normal. NECK: No JVD. No thyroid enlargement. No LNs CARDIOVASCULAR: S1, S2 positive irregularly irregular rhythm RESPIRATION: Patient is having wheezing bilaterally at the bases improved from before ABDOMEN: Soft, nontender . No guarding. no masses palpable. No ascites, No hepatosplenomegaly.Bowel sounds heard. LEGS: Right lower extremities swelling more than the left. NERVOUS SYSTEM: Cranial N 2-12 grossly normal. Moves all 4 limbs. No focal deficits. No sensory deficit. No signs of cerebellar dysfucntion. Skin: no ulcer no rash - Labs CBC & Chem 7: 01/01/19 06:29 01/01/19 06:29 Labs: Abnormal Lab Results - Last 24 Hours (Table) 12/31/18 01/01/19 01/01/19 Range/Units 17:01 06:29 06:29 RBC 3.19 L (4.30-5.90) m/uL Hgb 8.6 L (13.0-17.5) gm/dL Hct 28.9 L (39.0-53.0) % MCHC 29.9 L (31.0-37.0) g/dL RDW 19.1 H (11.5-15.5) % Plt Count 111 L (150-450) k/uL Carbon Dioxide 32 H (22-30) mmol/L BUN 33 H (9-20) mg/dL Glucose 127 H (74-99) mg/dL POC Glucose (mg/dL) 125 H (75-99) mg/dL 01/01/19 01/01/19 Range/Units 07:00 11:28 RBC (4.30-5.90) m/uL Hgb (13.0-17.5) gm/dL Hct (39.0-53.0) % MCHC (31.0-37.0) g/dL RDW (11.5-15.5) % Plt Count (150-450) k/uL Carbon Dioxide (22-30) mmol/L BUN (9-20) mg/dL Glucose (74-99) mg/dL POC Glucose (mg/dL) 142 H 109 H (75-99) mg/dL Assessment and Plan Assessment: - Acute CHF exacerbation - Acute COPD exacerbation - History of A. fib on alk phos - Hypertension - Hyperlipidemia - GERD - Right lower swelling more than the left Plan - Patient is on Lasix as per cardiology recommendation. - On prednisone as per pulmonology - Continue breathing treatments - Continue rest of the medications - We'll follow up on the patient
[2019-01-01 16:59] LABS: Glucose,Whole Blood 130 mg/dL (75-99)
[2019-01-01 19:40] LABS: Glucose,Whole Blood 140 mg/dL (75-99)
[2019-01-02 07:22] LABS: Glucose,Whole Blood 136 mg/dL (75-99)
[2019-01-02 08:13] LABS: Anisocytosis Slight; HCT 30.5 % (39.0-53.0); HGB 8.9 gm/dL (13.0-17.5); Hypochromasia Marked; MCH 26.3 pg (25.0-35.0); MCV 90.5 fL (80.0-100.0); Mean Platelet Volume 10.8; Platelet Count 116 k/uL (150-450); Poikilocytosis Slight; RBC 3.37 m/uL (4.30-5.90); RDW 18.7 % (11.5-15.5); WBC 7.1 k/uL (3.8-10.6)
[2019-01-02 08:29] VITALS: RESP 20
[2019-01-02 08:35] LABS: Potassium 4.9 mmol/L (3.5-5.1)
[2019-01-02] MEDS: amLODIPine 5 MG TAB PO SCH (08:36)
[2019-01-02] MEDS: APIXABAN 2.5 MG TABLET PO SCH (08:36)
[2019-01-02] MEDS: LISINOPRIL 20 MG TAB PO SCH (08:36)
[2019-01-02] MEDS: PANTOPRAZOLE 40 MG TABLET PO SCH (08:36)
[2019-01-02] MEDS: ATORVASTATIN 20 MG TAB PO SCH (08:37)
[2019-01-02] MEDS: methylPREDNISolone SOD SUCCI 40 MG/ML 1 ML VIAL IV SCH (08:37)
[2019-01-02] MEDS: FUROSEMIDE 10 MG/ML 2 ML VIAL IV SCH (08:37)
[2019-01-02] MEDS: INSULIN ASPART 100 UNIT/ML 1 ML 10 ML VIAL SQ SCH ×2 (08:37→11:35)
[2019-01-02] MEDS: SPIRONOLACTONE 25 MG TAB PO SCH (08:40)
[2019-01-02] MEDS: METOPROLOL SUCCINATE (ER) 50 MG TAB.ER.24H PO SCH (08:40)
[2019-01-02] MEDS: ALBUTEROL NEBULIZED 2.5 MG/3 ML INHALATION SCH ×2 (09:21→14:08)
[2019-01-02 11:19] LABS: Glucose,Whole Blood 120 mg/dL (75-99)
--- NOTE | 2019-01-02 12:34 | P.PN ---
Subjective Very pleasant 8-year-old gentleman is admitted for CHF and COPD exacerbation. He's been followed by cardiology and pulmonology. He is on Lasix twice a day. 12/30 Today, the patient says that he's feeling fine, he does not complain of any chest pain racing heart, no cough or shortness of breath, no bowel pain, no nausea and vomiting, no diarrhea constipation. The patient is having right lower extremity swelling more than the left. 12/31 Says that he is feeling better but is still having sob with exertion No chest pain , no racing heart. no abd pain, no racing heart. 01/01 Patient says that he's feeling better. He is walking but descending on ablation No chest pain or racing heart 01/02 Sitting on the bed. Says that his breathing is better. He is not coughing He is doing better with oxygen Objective - Vital Signs Vital signs: Vital Signs Temp 97.9 F 01/02/19 08:27 Pulse 87 01/02/19 09:31 Resp 20 01/02/19 08:27 BP 138/82 01/02/19 08:27 Pulse Ox 98 01/02/19 08:27 Intake & Output 01/01/19 01/02/19 01/02/19 18:59 06:59 18:59 Intake Total 400 Balance 400 Weight 97 kg Intake: Oral 400 Other: Voiding Method Urinal Toilet Urinal # Voids 2 3 - Exam On exam, alert and oriented x3. HEENT: Conjunctivae normal. eyes normal. NECK: No JVD. No thyroid enlargement. No LNs CARDIOVASCULAR: S1, S2 positive irregularly irregular rhythm RESPIRATION: Patient is having wheezing bilaterally at the bases improved from before ABDOMEN: Soft, nontender . No guarding. no masses palpable. No ascites, No hepatosplenomegaly.Bowel sounds heard. LEGS: Right lower extremities swelling more than the left. NERVOUS SYSTEM: Cranial N 2-12 grossly normal. Moves all 4 limbs. No focal deficits. No sensory deficit. No signs of cerebellar dysfucntion. Skin: no ulcer no rash - Labs CBC & Chem 7: 01/02/19 07:15 01/02/19 07:15 Labs: Abnormal Lab Results - Last 24 Hours (Table) 01/01/19 01/01/19 01/02/19 Range/Units 16:58 19:35 07:15 RBC 3.37 L (4.30-5.90) m/uL Hgb 8.9 L (13.0-17.5) gm/dL Hct 30.5 L (39.0-53.0) % MCHC 29.0 L (31.0-37.0) g/dL RDW 18.7 H (11.5-15.5) % Plt Count 116 L (150-450) k/uL Carbon Dioxide (22-30) mmol/L BUN (9-20) mg/dL Glucose (74-99) mg/dL POC Glucose (mg/dL) 130 H 140 H (75-99) mg/dL 01/02/19 01/02/19 01/02/19 Range/Units 07:15 07:19 11:17 RBC (4.30-5.90) m/uL Hgb (13.0-17.5) gm/dL Hct (39.0-53.0) % MCHC (31.0-37.0) g/dL RDW (11.5-15.5) % Plt Count (150-450) k/uL Carbon Dioxide 33 H (22-30) mmol/L BUN 37 H (9-20) mg/dL Glucose 119 H (74-99) mg/dL POC Glucose (mg/dL) 136 H 120 H (75-99) mg/dL Assessment and Plan Assessment: - Acute CHF exacerbation - Acute COPD exacerbation - History of A. fib on alk phos - Hypertension - Hyperlipidemia - GERD - Right lower swelling more than the left Plan - Patient is on Lasix as per cardiology recommendation. 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
[2019-01-02 14:06] VITALS: BP 112/67; PULSE 93; TEMP 98
[2019-01-02] MEDS ORDERED: FUROSEMIDE 20 MG TAB PO SCH (16:00)
--- NOTE | 2019-01-02 16:02 | P.PN ---
Subjective Progress Note Date: 01/02/19 This is a very pleasant 83-year-old gentleman who follows with Dr. Beyer is his primary care physician. He has a history of chronic hypoxic respiratory failure secondary to chronic obstructive pulmonary disease, chronic cor pulmonale, atrial fibrillation, chronic systolic congestive heart failure, chronic dyspnea on exertion, coronary artery disease with previous coronary artery bypass grafting, hypertension. He was in our office yesterday seen Dr. Beyer and he was found to have significant oxygen desaturations that went along with his complaints of increasing shortness of breath cough and congestion. He was directed to the emergency room from there. Asked x-ray revealed evidence of cardiomegaly with mild central vascular congestion. EKG reveals atrial fibrillation with a controlled ventricular response and some possible ischemic changes in the anterior lateral leads. Troponin 0.08, 0.09, 0.09, proBNP 11,800. D-dimer 0.33. White count 7.2. Hemoglobin 8.4. Platelet count 93,000. INR 1.2. He is seen today in consultation in the emergency room. He is currently awake and alert in mild respiratory distress. He's been afebrile. Slightly tachycardic. Maintain O2 saturations in the 90s on 3 L/m per nasal cannula. He has been initiated on IV diuretics, IV Solu- Medrol, bronchodilators. He is anticoagulated with Eliquis. Patient was seen today 12/29/2017 in follow-up on the selective care unit. He is awake and alert in no acute distress. He is improved today as compared to yesterday. He remains in atrial fibrillation. His rate is better controlled. He has continued lower extremity edema. He continues to diurese. White count 5.1. Hemoglobin 8.5. Creatinine 1.15. He remains on IV diuretics. IV Solu- Medrol. Anticoagulated with Eliquis. On 12/30/2018 patient seen in follow-up. He sitting up on a jet bed, in no acute distress, he is on room air, his pulse ox is 99%, he is afebrile, respirations are even and nonlabored, lung sounds positive for some minimal wheezes. No cough, no chest congestion. Patient is diuresing, Lyme status is improving, still has some swelling in his legs, right greater than the left, extremity Doppler was negative for any DVT. No complaints of chest pain, palpitations. He remains in A. fib, his rate is controlled. He is on anticoagulation. These labs have been reviewed, showed a white blood cell count of 5.3, hemoglobin of 8.3, sodium is 140, potassium is 4.5, chloride is 100, CO2 31, B1 is 36, creatinine is 1.02 The patient is seen again today 12/31/2017 in follow-up on the selective care unit. He is currently resting comfortably in bed. He is awake and alert in no acute distress. He is maintaining O2 saturations in the 90s on 2 L/m per nasal cannula. He is still somewhat dyspneic on minimal exertion. White count 7.1. Hemoglobin 8.6. Creatinine 0.99. Igor on Lasix 20 mg IV U 12 hours. He is continued on bronchodilators and IV Solu-Medrol. The patient is seen today 01/01/2019 in follow-up on the regular medical floor. He is awake and alert in no acute distress. He is breathing easier today as compared to yesterday. He is maintaining good O2 saturations in the 90s on 2 L/ m per nasal cannula. He's been afebrile. Hemodynamically stable. His weight is down another kilogram. White count 6.2. Hemoglobin 8.6. Creatinine 0.99. He remains on Lasix 20 mg IV push every 12 hours. He is continued on bronchodilators and IV Solu-Medrol. Less wheezing. Less lower extremity edema. On today's evaluation of 01/02/2019, I'm seeing this patient for a follow-up. Is doing extremely well. Still hypoxic with a room air pulse ox of 86% and the patient is being arranged for home O2. Otherwise, he has no significant cough sputum production chest that is so wheezing. His overall pulmonary status is improved. The patient was treated with a combination of bronchodilators and systemic steroids. The patient was also diuresed adequately. No fever. No chills. Hemoglobin is at 8.9. Function is stable. Objective - Vital Signs Vital signs: Vital Signs Temp 98 F 01/02/19 13:00 Pulse 93 01/02/19 13:00 Resp 20 01/02/19 13:00 BP 112/67 01/02/19 13:00 Pulse Ox 88 L 01/02/19 13:00 Intake & Output 01/01/19 01/02/19 01/02/19 18:59 06:59 18:59 Intake Total 400 Balance 400 Weight 97 kg Intake: Oral 400 Other: Voiding Method Urinal Toilet Urinal # Voids 2 3 3 - Exam GENERAL EXAM: Alert, comfortable in no apparent distress. O2 saturation in the 90s on 2 L/m per nasal cannula. HEAD: Normocephalic. EYES: Normal reaction of pupils, equal size. NOSE: Clear with pink turbinates. THROAT: No erythema or exudates. NECK: No masses, no JVD. CHEST: No chest wall deformity. LUNGS: Equal air entry with scattered rhonchi, crackles in the posterior bases. CVS: S1 and S2 normal with no audible murmur, irregular rhythm. ABDOMEN: No hepatosplenomegaly, normal bowel sounds, no guarding or rigidity. SPINE: No scoliosis or deformity SKIN: No rashes CENTRAL NERVOUS SYSTEM: No focal deficits, tone is normal in all 4 extremities. EXTREMITIES: There is 2+ peripheral edema. No clubbing, no cyanosis. Peripheral pulses are intact. - Labs CBC & Chem 7: 01/02/19 07:15 01/02/19 07:15 Labs: Abnormal Lab Results - Last 24 Hours (Table) 01/01/19 01/01/19 01/02/19 Range/Units 16:58 19:35 07:15 RBC 3.37 L (4.30-5.90) m/uL Hgb 8.9 L (13.0-17.5) gm/dL Hct 30.5 L (39.0-53.0) % MCHC 29.0 L (31.0-37.0) g/dL RDW 18.7 H (11.5-15.5) % Plt Count 116 L (150-450) k/uL Carbon Dioxide (22-30) mmol/L BUN (9-20) mg/dL Glucose (74-99) mg/dL POC Glucose (mg/dL) 130 H 140 H (75-99) mg/dL 01/02/19 01/02/19 01/02/19 Range/Units 07:15 07:19 11:17 RBC (4.30-5.90) m/uL Hgb (13.0-17.5) gm/dL Hct (39.0-53.0) % MCHC (31.0-37.0) g/dL RDW (11.5-15.5) % Plt Count (150-450) k/uL Carbon Dioxide 33 H (22-30) mmol/L BUN 37 H (9-20) mg/dL Glucose 119 H (74-99) mg/dL POC Glucose (mg/dL) 136 H 120 H (75-99) mg/dL Assessment and Plan Plan: #1 Acute hypoxemic respiratory failure secondary to an acute exacerbation of chronic diastolic congestive heart failure along with an acute exacerbation of chronic obstructive pulmonary disease. Echocardiogram reveals preserved left ventricular systolic function. There is moderate to severe pulmonary hypertension. He is continued on IV diuretics. #2 Acute exacerbation of chronic obstructive pulmonary disease, FEV1 value 65% of predicted. He's been treated and improved. #3 Coronary artery disease with previous coronary artery bypass grafting. #4 Paroxysmal atrial fibrillation, anticoagulated with Eliquis. #5 Morbid obesity. #6 Hyperlipidemia. #7 Gastroesophageal reflux disease. #8 Hypertension. Plan Patient is recovering. The patient will need home O2. This will be arranged for him. He was discharged home on a prednisone burst taper starting with 40 mg a day but by 10 mg every 4 days. He has home nebulizer. He has ventral rescue inhaler. He has long-term anticoagulation with Eliquis. He'll be also placed on Lasix 20 mg by mouth twice a day and IV Lasix will be discontinued. Discharge by the medical team.
[2019-01-03] MEDS ORDERED: predniSONE 20 MG TAB PO SCH (09:00)
== END 2019-01-02 16:47 | disposition home or self-care (01) | DRG 280 ==
LOC: EC 16:18 → 3SCARD 19:16 → OBSVTOIN 12-28 08:27 → 3SCARD 12-28 16:50 → 3NMEDONC 12-31 22:25
PROVIDERS: ADMIT Hospitalist; ATTEND Hospitalist
DX: I11.0 Hypertensive heart disease with heart failure (principal); I21.A1 Myocardial infarction type 2; J96.21 Acute and chronic respiratory failure with hypoxia; I48.1 Persistent atrial fibrillation; J44.1 Chronic obstructive pulmonary disease with (acute) exacerbation; I50.43 Acute on chronic combined systolic (congestive) and diastolic (congestive) heart failure; E66.01 Morbid (severe) obesity due to excess calories; E78.5 Hyperlipidemia, unspecified; I25.10 Atherosclerotic heart disease of native coronary artery without angina pectoris; I27.29 Other secondary pulmonary hypertension; I48.2 Chronic atrial fibrillation; K21.9 Gastro-esophageal reflux disease without esophagitis; Z68.33 Body mass index [BMI] 33.0-33.9, adult; Z79.01 Long term (current) use of anticoagulants; Z79.899 Other long term (current) drug therapy; Z85.46 Personal history of malignant neoplasm of prostate; Z87.891 Personal history of nicotine dependence; Z95.1 Presence of aortocoronary bypass graft; Z92.3 Personal history of irradiation
CPT/HCPCS: 36415; 71045; 80048; 80053; 82550; 82553; 83036; 83735; 83880; 84484; 85025; 85027; 85379; 85610; 85730; 93005; 93306; 94640; 94760; 96374; 96376; 99291

== ENCOUNTER → 2019-01-11 | Outpatient (CLI) | payer MEDICARE, BC ==
[2019-01-11 17:31] LABS: Albumin 4.2 g/dL (3.80-4.90); Anion Gap 11.5 mmol/L (4.00-12.00); Calcium 8.9 mg/dL (8.7-10.3); Carbon Dioxide 27.5 mmol/L (21.6-31.8); Globulin 1.4 g/dL (1.6-3.3); Potassium 4.8 mmol/L (3.5-5.5); Total Bilirubin 0.9 mg/dL (0.2-1.2); Total Protein 5.6 g/dL (6.2-8.2)
== END | disposition home or self-care (01) ==
LOC: LABWHC1 10:45
PROVIDERS: ATTEND Internal Medicine
DX: I50.9 Heart failure, unspecified (principal)
CPT/HCPCS: 36415; 80053; 83880

== ENCOUNTER → 2019-02-03 | Outpatient (CLI) | payer MEDICARE, BC ==
[2019-02-03 18:08] LABS: Calcium 8.8 mg/dL (8.7-10.3); Potassium 5.1 mmol/L (3.5-5.5)
== END | disposition home or self-care (01) ==
LOC: LABWHC1 12:53
PROVIDERS: ATTEND Nurse Practitioner Adult Health
DX: I10 Essential (primary) hypertension (principal); R60.0 Localized edema
CPT/HCPCS: 36415; 80048

== ENCOUNTER → 2019-04-14 | Outpatient (CLI) | payer MEDICARE, BC ==
[2019-04-14 18:17] LABS: Albumin 4.4 g/dL (3.80-4.90); Albumin/Globulin Ratio 2.93 (1.60-3.17); Calcium 8.9 mg/dL (8.7-10.3); Globulin 1.5 g/dL (1.6-3.3); LDL Cholesterol,Calculated 63.2 mg/dL (0.0-131.0); Potassium 5.2 mmol/L (3.5-5.5); Total Bilirubin 0.8 mg/dL (0.2-1.2); Total Protein 5.9 g/dL (6.2-8.2); VLDL Calculation 26.8 mg/dL (5.00-40.00)
== END | disposition home or self-care (01) ==
LOC: LABWHC1 08:53
PROVIDERS: ATTEND Nurse Practitioner Adult Health
DX: E78.2 Mixed hyperlipidemia (principal); I48.1 Persistent atrial fibrillation
CPT/HCPCS: 36415; 80053; 80061